=== PATIENT | female | born 1955 | race Caucasian/White ===

== ENCOUNTER 2020-06-27 21:02 | Inpatient (IN) | payer OTHER ==
[2020-06-27] MEDS ORDERED: SODIUM CHLORIDE 0.9% 1,000 ML IV STA (22:11)
[2020-06-27 22:28] LABS: Basophils % (A) 0 %; Eosinophils % (A) 1 %; Lymphocytes # (A) 1.1 k/uL (1.0-4.8); Lymphocytes % (A) 24 %; MCH 28.9 pg (25.0-35.0); MCHC 33.4 g/dL (31.0-37.0); MCV 86.7 fL (80.0-100.0); Mean Platelet Volume 7.6; Monocytes # (A) 0.3 k/uL (0-1.0); Monocytes % (A) 6 %; Neutrophils # (A) 3.1 k/uL (1.3-7.7); Neutrophils % (A) 66 %; Platelet Count 194 k/uL (150-450); RBC 4.84 m/uL (3.80-5.40); RDW 12.6 % (11.5-15.5); WBC 4.7 k/uL (3.8-10.6)
[2020-06-27 22:36] LABS: Partial Thromboplastin Time 25.1 sec (22.0-30.0); Prothrombin Time 10.3 sec (9.0-12.0)
[2020-06-27 22:41] LABS: ALT 25 U/L (4-34); AST 39 U/L (14-36); African American GFR (CKD) >90 (>60 ml/min/1.73 sqM); Albumin 4.1 g/dL (3.5-5.0); Alkaline Phosphatase 59 U/L (38-126); Anion Gap 11 mmol/L; Blood Urea Nitrogen 19 mg/dL (7-17); Calcium 8.9 mg/dL (8.4-10.2); Carbon Dioxide 24 mmol/L (22-30); Chloride 103 mmol/L (98-107); Glucose 119 mg/dL (74-99); Magnesium 2.1 mg/dL (1.6-2.3); Non-African American GFR(CKD) >90 (>60 ml/min/1.73 sqM); Potassium 3.6 mmol/L (3.5-5.1); Sodium 138 mmol/L (137-145); Total Bilirubin 0.6 mg/dL (0.2-1.3); Total Protein 6.6 g/dL (6.3-8.2)
--- NOTE | 2020-06-27 22:50 | XR ---
EXAMINATION TYPE: XR chest 2V DATE OF EXAM: 06/27/2020 COMPARISON: NONE HISTORY: Dysrhythmia TECHNIQUE: 2 views FINDINGS: Heart is normal. Lungs are clear. Costophrenic angles are clear. There are chest leads. Mai phragm is normal. Bony thorax is intact. IMPRESSION: No active cardiopulmonary disease. Normal heart.
[2020-06-27 23:28] LABS: Appearance,Urine Clear (Clear); Bacteria,Urine Rare /hpf; Bilirubin,Urine Negative (Negative); Blood,Urine Negative (Negative); Color,Urine Yellow; Glucose,Urine (UA) Negative (Negative); Ketones,Urine 2+ (Negative); Leukocyte Esterase,Urine Large (Negative); Mucus,Urine Rare /hpf; Nitrite,Urine Negative (Negative); Protein,Urine Trace (Negative); RBC,Urine 1 /hpf (0-5); Specific Gravity,Urine 1.016 (1.001-1.035); Squamous Epithelial Cell,Urine 1 /hpf (0-4); Urobilinogen,Urine <2.0 mg/dL (<2.0); WBC,Urine 12 /hpf (0-5)
[2020-06-27 23:59] LABS: T4, Free (Free Thyroxine) 1.04 ng/dL (0.78-2.19)
--- NOTE | 2020-06-28 00:30 | ED ---
General Adult HPI - General Chief complaint: Arrhythmia/Palpitations Stated complaint: Syncopy,Palpitations Time Seen by Provider: 06/27/20 21:43 Source: patient Mode of arrival: ambulatory Limitations: no limitations - History of Present Illness Initial comments: 64-year-old female patient presents to the emergency department today for evaluation of palpitations, dizziness, feeling unwell. Patient states that for the last couple of days she's been having these intermittent episodes or feeling her heart is racing. States she does get dizzy with the episodes. Denies any chest pain or tightness. States that she has been somewhat nauseated has had no appetite. Denies any fever or chills. Denies shortness of breath or cough. Patient denies any recent rash, chest pain, abdominal pain, diarrhea, constipation, back pain, numbness, tingling, dizziness, weakness, hematuria, dysuria, urinary urgency, urinary frequency, headache, visual changes, or any other complaints. - Related Data Allergies Allergy/AdvReac Type Severity Reaction Status Date / Time Penicillins Allergy Rash/Hives Verified 06/27/20 21:06 Review of Systems ROS Statement: Those systems with pertinent positive or pertinent negative responses have been documented in the HPI. ROS Other: All systems not noted in ROS Statement are negative. Past Medical History Past Medical History: No Reported History History of Any Multi-Drug Resistant Organisms: None Reported Past Surgical History: Section, Cholecystectomy Past Psychological History: No Psychological Hx Reported Smoking Status: Never smoker Past Alcohol Use History: None Reported Past Drug Use History: None Reported General Exam Limitations: no limitations General appearance: alert, in no apparent distress, other (This is a well-developed, well-nourished adult female patient in no acute distress. Vital signs upon presentation are temperature 98.1F, pulse 88, respirations 16, blood pressure 181/79, pulse ox 97% on room air.) Eye exam: Present: normal appearance, PERRL, EOMI. Absent: scleral icterus, conjunctival injection, periorbital swelling ENT exam: Present: normal exam, normal oropharynx, mucous membranes moist Respiratory exam: Present: normal lung sounds bilaterally. Absent: respiratory distress, wheezes, rales, rhonchi, stridor Cardiovascular Exam: Present: regular rate, normal rhythm, normal heart sounds. Absent: systolic murmur, diastolic murmur, rubs, gallop, clicks GI/Abdominal exam: Present: soft, normal bowel sounds. Absent: distended, tenderness, guarding, rebound, rigid Neurological exam: Present: alert, oriented X3, CN II-XII intact Psychiatric exam: Present: normal affect, normal mood Skin exam: Present: warm, dry, intact, normal color. 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 No evidence of ST elevation or depression. Medical Decision Making - Medical Decision Making 64-year-old female patient presents to the emergency department today for evaluation of palpitations, dizziness, not feeling well. Physical examination was unremarkable. Labs reviewed and were unremarkable. EKG showed normal sinus rhythm with no ectopy. Chest x-ray is negative. She did have a bit of a urinary tract infection will treat with Rocephin. She'll be admitted to the [facility] for serial troponins. Cardiology in the morning. Patient is agreeable with this plan. Case discussed with my attending Dr. Strickland. - Lab Data Result diagrams: 06/27/20 22:19 06/27/20 22:19 Lab Results 06/27/20 06/27/20 06/27/20 Range/Units 22:19 22:19 22:19 WBC 4.7 (3.8-10.6) k/uL RBC 4.84 (3.80-5.40) m/uL Hgb 14.0 (11.4-16.0) gm/dL Hct 42.0 (34.0-46.0) % MCV 86.7 (80.0-100.0) fL MCH 28.9 (25.0-35.0) pg MCHC 33.4 (31.0-37.0) g/dL RDW 12.6 (11.5-15.5) % Plt Count 194 (150-450) k/uL MPV 7.6 Neutrophils % 66 % Lymphocytes % 24 % Monocytes % 6 % Eosinophils % 1 % Basophils % 0 % Neutrophils # 3.1 (1.3-7.7) k/uL Lymphocytes # 1.1 (1.0-4.8) k/uL Monocytes # 0.3 (0-1.0) k/uL Eosinophils # 0.0 (0-0.7) k/uL Basophils # 0.0 (0-0.2) k/uL PT 10.3 (9.0-12.0) sec INR 1.0 (<1.2) APTT 25.1 (22.0-30.0) sec Sodium 138 (137-145) mmol/L Potassium 3.6 (3.5-5.1) mmol/L Chloride 103 (98-107) mmol/L Carbon Dioxide 24 (22-30) mmol/L Anion Gap 11 mmol/L BUN 19 H (7-17) mg/dL Creatinine 0.56 (0.52-1.04) mg/dL Est GFR (CKD-EPI)AfAm >90 (>60 ml/min/1.73 sqM) Est GFR (CKD-EPI)NonAf >90 (>60 ml/min/1.73 sqM) Glucose 119 H (74-99) mg/dL Calcium 8.9 (8.4-10.2) mg/dL Magnesium 2.1 (1.6-2.3) mg/dL Total Bilirubin 0.6 (0.2-1.3) mg/dL AST 39 H (14-36) U/L ALT 25 (4-34) U/L Alkaline Phosphatase 59 (38-126) U/L Troponin I (0.000-0.034) ng/mL Total Protein 6.6 (6.3-8.2) g/dL Albumin 4.1 (3.5-5.0) g/dL TSH 10.600 H (0.465-4.680) mIU/L Free T4 1.04 (0.78-2.19) ng/dL Urine Color Urine Appearance (Clear) Urine pH (5.0-8.0) Ur Specific Boyd (1.001-1.035) Urine Protein (Negative) Urine Glucose (UA) (Negative) Urine Ketones (Negative) Urine Blood (Negative) Urine Nitrite (Negative) Urine Bilirubin (Negative) Urine Urobilinogen (<2.0) mg/dL Ur Leukocyte Esterase (Negative) Urine RBC (0-5) /hpf Urine WBC (0-5) /hpf Ur Squamous Epith Cells (0-4) /hpf Urine Bacteria (None) /hpf Urine Mucus (None) /hpf 06/27/20 06/27/20 Range/Units 22:19 23:15 WBC (3.8-10.6) k/uL RBC (3.80-5.40) m/uL Hgb (11.4-16.0) gm/dL Hct (34.0-46.0) % MCV (80.0-100.0) fL MCH (25.0-35.0) pg MCHC (31.0-37.0) g/dL RDW (11.5-15.5) % Plt Count (150-450) k/uL MPV Neutrophils % % Lymphocytes % % Monocytes % % Eosinophils % % Basophils % % Neutrophils # (1.3-7.7) k/uL Lymphocytes # (1.0-4.8) k/uL Monocytes # (0-1.0) k/uL Eosinophils # (0-0.7) k/uL Basophils # (0-0.2) k/uL PT (9.0-12.0) sec INR (<1.2) APTT (22.0-30.0) sec Sodium (137-145) mmol/L Potassium (3.5-5.1) mmol/L Chloride (98-107) mmol/L Carbon Dioxide (22-30) mmol/L Anion Gap mmol/L BUN (7-17) mg/dL Creatinine (0.52-1.04) mg/dL Est GFR (CKD-EPI)AfAm (>60 ml/min/1.73 sqM) Est GFR (CKD-EPI)NonAf (>60 ml/min/1.73 sqM) Glucose (74-99) mg/dL Calcium (8.4-10.2) mg/dL Magnesium (1.6-2.3) mg/dL Total Bilirubin (0.2-1.3) mg/dL AST (14-36) U/L ALT (4-34) U/L Alkaline Phosphatase (38-126) U/L Troponin I <0.012 (0.000-0.034) ng/mL Total Protein (6.3-8.2) g/dL Albumin (3.5-5.0) g/dL TSH (0.465-4.680) mIU/L Free T4 (0.78-2.19) ng/dL Urine Color Yellow Urine Appearance Clear (Clear) Urine pH 6.0 (5.0-8.0) Ur Specific Boyd 1.016 (1.001-1.035) Urine Protein Trace H (Negative) Urine Glucose (UA) Negative (Negative) Urine Ketones 2+ H (Negative) Urine Blood Negative (Negative) Urine Nitrite Negative (Negative) Urine Bilirubin Negative (Negative) Urine Urobilinogen <2.0 (<2.0) mg/dL Ur Leukocyte Esterase Large H (Negative) Urine RBC 1 (0-5) /hpf Urine WBC 12 H (0-5) /hpf Ur Squamous Epith Cells 1 (0-4) /hpf Urine Bacteria Rare H (None) /hpf Urine Mucus Rare H (None) /hpf - Radiology Data Radiology results: report reviewed, image reviewed Two-view x-ray of the chest is obtained. Report was reviewed in its entirety. Impression by Dr. Weiss shows no active cardiopulmonary disease. Normal heart. Disposition Clinical Impression: Palpitations, Nausea, UTI (urinary tract infection) Disposition: ADMITTED IP TO THIS [facility] Condition: Serious Referrals: Joseph Chan DO [Primary Care Provider] - 1-2 days Decision to Admit Reason: Admit from EC Decision Date: 06/28/20 Decision Time: 00:30
[2020-06-28] MEDS ORDERED: NALOXONE 0.4 MG/ML 1 ML VIAL IV PRN (00:53)
[2020-06-28] MEDS ORDERED: ONDANSETRON 4 MG/2 ML VIAL IVP PRN (02:08)
--- NOTE | 2020-06-28 12:17 | P.HPIM ---
History of Present Illness This is a pleasant 64 years old female with past medical history of sciatic nerve pain. Also history of left breast cancer in 2001. Status post ligation and partial mastectomy. She is a patient of Dr. Chan. She presents to the emergency room yesterday because of 3 episodes of palpitation and presyncope. First episode happened while she was in shower and lasted for 5 seconds, her dizziness felt like presyncope but she did not pass out, she did not fall, this episode happened twice more and each time also last for about 5 seconds. She denies chest pain or dyspnea. No fever. No change in urine or bowel habits. She has some headache but no weakness or numbness. The patient denies smoking, alcohol or illicit drugs Vitals are stable, blood pressure on the high side 169/85. Labs are unremarkable including CBC, BMP and liver enzymes. TSH is elevated 10.6, free T4 is normal range at 1.0 EKG showing normal sinus rhythm at [address]-T changes and QTC 454. Chest x-ray: No acute process. In the emergency room patient was started on ceftriaxone Past Medical History Past Medical History: No Reported History, Cancer Additional Past Medical History / Comment(s): 2001 left breast CA /w radiation and partial mastectomy History of Any Multi-Drug Resistant Organisms: None Reported Past Surgical History: Section, Cholecystectomy Past Anesthesia/Blood Transfusion Reactions: No Reported Reaction Past Psychological History: No Psychological Hx Reported Smoking Status: Never smoker Past Alcohol Use History: None Reported Past Drug Use History: None Reported - Past Family History Father History Unknown: Yes Family Medical History: Blood Disorder, Hypertension, Myocardial Infarction ([place]) Additional Family Medical History / Comment(s): [place] when father was 70 Mother History Unknown: Yes Family Medical History: Hypertension Medications and Allergies Home Medications Medication Instructions Recorded Confirmed Type No Known Home Medications 06/28/20 06/28/20 History Allergies Allergy/AdvReac Type Severity Reaction Status Date / Time Penicillins Allergy Rash/Hives Verified 06/28/20 08:31 Physical Exam Vitals: Vital Signs Temp Pulse Pulse Pulse Resp BP BP 06/28/20 09:25 98.9 F 80 17 169/85 06/28/20 08:00 70 19 06/28/20 02:00 98.3 F 70 19 165/75 06/28/20 01:21 70 18 147/75 06/27/20 21:28 80 06/27/20 21:03 98.1 F 88 16 181/79 Pulse Ox 06/28/20 09:25 96 06/28/20 08:00 06/28/20 02:00 97 06/28/20 01:21 96 06/27/20 21:28 06/27/20 21:03 97 Intake and Output 06/27/20 06/28/20 06/28/20 22:59 06:59 14:59 Other: Voiding Method Toilet Toilet # Voids 1 1 Weight 70.307 kg 70.307 kg Results CBC & Chem 7: 06/27/20 22:19 06/27/20 22:19 Labs: Abnormal Lab Results - Last 24 Hours (Table) 06/27/20 06/27/20 06/28/20 Range/Units 22:19 23:15 01:20 BUN 19 H (7-17) mg/dL Glucose 119 H (74-99) mg/dL AST 39 H (14-36) U/L TSH 10.600 H (0.465-4.680) mIU/L Urine Protein Trace H (Negative) Urine Ketones 2+ H (Negative) Ur Leukocyte Esterase Large H (Negative) Urine WBC 12 H (0-5) /hpf Urine Bacteria Rare H (None) /hpf Urine Mucus Rare H (None) /hpf Coronavirus (PCR) Detected A (Not Detectd) Microbiology - Last 24 Hours (Table) 06/27/20 23:15 Urine Culture - Preliminary Urine,Voided Thrombosis Risk Factor Assmnt - Choose All That Apply Any of the Below Risk Factors Present?: No Each Risk Factor Represents 2 Points: Age 61-74 years Other congenital or acquired thrombophilia - If yes, enter type in comment: No Thrombosis Risk Factor Assessment Total Risk Factor Score: 2 Thrombosis Risk Factor Assessment Level: Low Risk Assessment and Plan Assessment: Episodic palpitation with presyncope. Rule out cardiac arrhythmia Covid 19 infection Possible urinary tract infection possible subclinical hypothyroidism Chronic low back pain with sciatica Plan: This is a pleasant 64 years old female who presents with palpitations and presyncope. Cardiology consult. Check echocardiogram. Telemetry. Consult infectious disease team for UTI and Covid. Follow-up urine culture. Patient currently on ceftriaxone. Reorder urinalysis and thyroid function test Labs and medication were reviewed.. Continue same treatment. Continue with symptomatic treatment. Resume home medication. Monitor lytes and vitals. DVT and GI prophylaxis. Further recommendationsas per clinical course of the patient DVT prophylaxis: Subcutaneous heparin GI Prophylaxis: Pepcid
--- NOTE | 2020-06-28 15:29 | P.CRDCN ---
History of Present Illness Consult date: 06/28/20 History of present illness: CHIEF COMPLAINT: Palpitations HISTORY OF PRESENT ILLNESS: This is a 64-year-old female with a past medical history significant for breast cancer. 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 We have been asked to see the patient in consultation for palpitations. Patient currently presented to the emergency room due to palpitations and feeling as though she is going to pass out. Patient was found to be positive for Covid 19 in the emergency room. Case discussed with patients nurse who states patient has not had any further complaints of palpitations or feeling like she is going to pass out. No chest pain or shortness of breath. Telemetry tracings reviewed with no evidence of arrhythmias. DIAGNOSTICS: EKG reveals sinus mechanism Chest xray no active cardio pulmonary disease Laboratory data: WBC 4.7. Hemoglobin 14.0. Platelet Count 194. Sodium 138. Potassium 3.6. BUN 19. Creatinine 0.56. Magnesium 2.1. Troponin negative 3. TSH 10.6. Free T4 1.04. Current home cardiac medications include none REVIEW OF SYSTEMS: Thorough review of systems not completed secondary to limited evaluation/examination and due to Covid19 PHYSICAL EXAM: Thorough physical exam not completed secondary to limited evaluation/examination and due to Covid19 ASSESSMENT: Covid 19 Palpitations Possible urinary tract infection Abnormal TSH PLAN: Preliminary echocardiogram completed revealed ejection fraction 55-60% Continue telemetry monitoring to assess for any arrhythmias Patient is stable from a cardiac perspective. We will sign off. Please reconsult if needed. Patient may follow up outpatient in the office and have an event monitor placed if she continues to experience palpitations Nurse practitioner note has been reviewed by physician. Signing provider agrees with the documented findings, assessment, and plan of care. Past Medical History Past Medical History: No Reported History, Cancer Additional Past Medical History / Comment(s): 2001 left breast CA /w radiation and partial mastectomy History of Any Multi-Drug Resistant Organisms: None Reported Past Surgical History: Section, Cholecystectomy Past Anesthesia/Blood Transfusion Reactions: No Reported Reaction Past Psychological History: No Psychological Hx Reported Smoking Status: Never smoker Past Alcohol Use History: None Reported Past Drug Use History: None Reported - Past Family History Father History Unknown: Yes Family Medical History: Blood Disorder, Hypertension, Myocardial Infarction ([place]) Additional Family Medical History / Comment(s): [place] when father was 70 Mother History Unknown: Yes Family Medical History: Hypertension Medications and Allergies Home Medications Medication Instructions Recorded Confirmed Type No Known Home Medications 06/28/20 06/28/20 History Allergies Allergy/AdvReac Type Severity Reaction Status Date / Time Penicillins Allergy Rash/Hives Verified 06/28/20 08:31 Physical Exam Vitals: Vital Signs Temp Pulse Pulse Pulse Resp BP BP 06/28/20 14:00 70 80 17 06/28/20 09:25 98.9 F 80 17 169/85 06/28/20 08:00 70 19 06/28/20 02:00 98.3 F 70 19 165/75 06/28/20 01:21 70 18 147/75 06/27/20 21:28 80 06/27/20 21:03 98.1 F 88 16 181/79 Pulse Ox 06/28/20 14:00 06/28/20 09:25 96 06/28/20 08:00 06/28/20 02:00 97 06/28/20 01:21 96 06/27/20 21:28 06/27/20 21:03 97 Intake and Output 06/28/20 06/28/20 06/28/20 06:59 14:59 22:59 Other: Voiding Method Toilet Toilet # Voids 1 2 Weight 70.307 kg Results 06/27/20 22:19 06/27/20 22:19 Cardiac Enzymes 06/27/20 06/27/20 06/28/20 Range/Units 22:19 22:19 01:45 AST 39 H (14-36) U/L Troponin I <0.012 <0.012 (0.000-0.034) ng/mL 06/28/20 Range/Units 04:47 AST (14-36) U/L Troponin I <0.012 (0.000-0.034) ng/mL Coagulation 06/27/20 Range/Units 22:19 PT 10.3 (9.0-12.0) sec APTT 25.1 (22.0-30.0) sec CBC 06/27/20 Range/Units 22:19 WBC 4.7 (3.8-10.6) k/uL RBC 4.84 (3.80-5.40) m/uL Hgb 14.0 (11.4-16.0) gm/dL Hct 42.0 (34.0-46.0) % Plt Count 194 (150-450) k/uL Comprehensive Metabolic Panel 06/27/20 Range/Units 22:19 Sodium 138 (137-145) mmol/L Potassium 3.6 (3.5-5.1) mmol/L Chloride 103 (98-107) mmol/L Carbon Dioxide 24 (22-30) mmol/L BUN 19 H (7-17) mg/dL Creatinine 0.56 (0.52-1.04) mg/dL Glucose 119 H (74-99) mg/dL Calcium 8.9 (8.4-10.2) mg/dL AST 39 H (14-36) U/L ALT 25 (4-34) U/L Alkaline Phosphatase 59 (38-126) U/L Total Protein 6.6 (6.3-8.2) g/dL Albumin 4.1 (3.5-5.0) g/dL Current Medications Generic Name Dose Route Start Last Admin Trade Name Freq PRN Reason Stop Dose Admin Acetaminophen 650 mg 06/28/20 12:06 Acetaminophen Tab 325 Mg Tab PO Q6HR PRN Fever and/ or Pain Famotidine 20 mg 06/28/20 21:00 Famotidine 20 Mg/2 Ml Vial IV Q12HR [facility] Heparin Sodium (Porcine) 5,000 unit 06/28/20 12:15 Heparin Sodium,Porcine 5,000 Unit/Ml 1 Ml Vial SQ Q12HR [facility] Ceftriaxone Sodium 1 gm/ 50 mls @ 100 mls/hr 06/29/20 00:00 Sodium Chloride IVPB Q24H [facility] Naloxone HCl 0.2 mg 06/28/20 00:53 Naloxone 0.4 Mg/Ml 1 Ml Vial IV Q2M PRN Opioid Reversal Ondansetron HCl 4 mg 06/28/20 02:08 Ondansetron 4 Mg/2 Ml Vial IVP Q6HR PRN Nausea And Vomiting Intake and Output 06/28/20 06/28/20 06/28/20 06:59 14:59 22:59 Other: Voiding Method Toilet Toilet # Voids 1 2 Weight 70.307 kg 06/27/20 22:19 06/27/20 22:19
[2020-06-28] MEDS: ACETAMINOPHEN TAB 325 MG TAB PO PRN ×2 (15:46→22:19)
[2020-06-28] MEDS: HEPARIN SODIUM,PORCINE 5,000 UNIT/ML 1 ML VIAL SQ SCH ×2 (15:46→20:05)
[2020-06-28 15:55] VITALS: BMI 29.2
[2020-06-28 17:11] LABS: Appearance,Urine Clear (Clear); Bilirubin,Urine Negative (Negative); Blood,Urine Trace (Negative); Color,Urine Yellow; Glucose,Urine (UA) Negative (Negative); Ketones,Urine 4+ (Negative); Leukocyte Esterase,Urine Moderate (Negative); Mucus,Urine Occasional /hpf; Nitrite,Urine Negative (Negative); Protein,Urine 1+ (Negative); RBC,Urine 8 /hpf (0-5); Specific Gravity,Urine 1.026 (1.001-1.035); Squamous Epithelial Cell,Urine 2 /hpf (0-4); WBC,Urine 11 /hpf (0-5)
--- NOTE | 2020-06-28 17:12 | ECHOF ---
Referral Reason:LV function, palpitations MEASUREMENTS -------- HEIGHT: 154.9 cm WEIGHT: 70.3 kg BP: 165/75 RVIDd: 2.8 cm (< 3.3) IVSd: 1.5 cm (0.6 - 1.1) LVIDd: 3.9 cm (3.9 - 5.3) LVPWd: 1.3 cm (0.6 - 1.1) IVSs: 1.8 cm LVIDs: 2.3 cm LVPWs: 1.8 cm LAESV Index (A-L): 20.17 ml/m Ao Diam: 2.7 cm (2.0 - 3.7) AV Cusp: 1.8 cm (1.5 - 2.6) MV EXCURSION: 11.892 mm (> 18.000) MV EF SLOPE: 80 mm/s (70 - 150) EPSS: 0.4 cm MV E Sundeep: 0.68 m/s MV DecT: 280 ms MV A Sundeep: 1.00 m/s MV E/A Ratio: 0.69 FINDINGS -------- Sinus rhythm. This was a technically adequate study. The left ventricular size is normal. There is moderate concentric left ventricular hypertrophy. O verall left ventricular systolic function is normal with, an EF between 55 - 60 %. The diastolic fi lling pattern is normal for the age of the patient 9.02. The right ventricle is normal in size. Normal LA size by volume 22+/-6 ml/m2. The right atrial size is normal. Mobile interatrial septum. Trace amount of aortic regurgitation. There is no evidence of aortic stenosis. Mild mitral regurgitation is present. Mild tricuspid regurgitation present. There is no evidence of pulmonary hypertension. The right v entricular systolic pressure, as measured by Doppler, is {RVSP}. There is no pulmonic regurgitation present. The aortic root size is normal. Normal inferior vena cava with normal inspiratory collapse consistent with estimated right atrial pre ssure of 5 mmHg. There is no pericardial effusion. CONCLUSIONS -------- 1. The left ventricular size is normal. 2. There is moderate concentric left ventricular hypertrophy. 3. Overall left ventricular systolic function is normal with, an EF between 55 - 60 %. 4. The diastolic filling pattern is normal for the age of the patient 9.02 5. Mobile interatrial septum. 6. Trace amount of aortic regurgitation. 7. Mild mitral regurgitation is present. 8. Mild tricuspid regurgitation present. [employer]OUS [employer] SUPERVISOR: Gali Morgan RDCS
[2020-06-28] MEDS: FAMOTIDINE 20 MG/2 ML VIAL IV SCH (20:05)
--- NOTE | 2020-06-28 23:26 | CONS ---
CONSULTATION DATE OF SERVICE: 06/28/2020 REASON FOR FOLLOWUP: 1. Positive COVID test. 2. UTI. HISTORY OF PRESENT ILLNESS: The patient is a 64-year-old female presenting to the ER for evaluation of not feeling well and palpitation. Patient mentioned that she has not been feeling well for the last few days, has been more of a generalized not feeling well. The patient denies having any neck or URI symptoms. Denies having any chest pain or shortness of breath or cough. Some nausea but no vomiting. No abdominal pain and no diarrhea. The patient noticed some palpitations and thought she was going to pass out. That brought her to the hospital. On arrival in the ER, the patient was afebrile. No tachycardia has been noted. The patient was saturating 97% to 98% on room air. The patient did have a normal white count with no lymphopenia. D-dimer was not checked. Kidney function was normal, AST mildly elevated at 39. No other inflammatory markers were done. Urine has been mildly positive. Bright PCR came back . Chest x-ray was reported negative. The patient has been admitted to hospital for COVID and UTI. Infectious Disease was consulted for further management of antibiotic therapy. REVIEW OF SYSTEMS: Positive points have been mentioned in the HPI. Rest of the systems are negative. PAST MEDICAL HISTORY: No major illnesses. PAST SURGICAL HISTORY: , cholecystectomy. SOCIAL HISTORY: Denies smoking, drinking or drug use. FAMILY HISTORY: No pertinent findings noticed. ALLERGIES: PENICILLIN with a rash. No history of anaphylaxis. MEDICATIONS: The patient is currently on Tylenol, Rocephin, Pepcid, heparin subcutaneously, Narcan, Zofran. PHYSICAL EXAMINATION: Her blood pressure is 118/75 with a pulse of 69, temperature 98.7. She is 97% on room air. General description is a middle-aged female up in the bed in no distress. No tachypnea or accessory muscle of respiration use. HEENT: Examination shows no pallor or scleral icterus. Oral mucous membrane is dry. NECK: Trachea is central. No thyromegaly. LUNGS: Unlabored breathing. Clear to auscultation anteriorly. No wheeze or crackle. HEART: S1, S2. Regular rate and rhythm. ABDOMEN: Soft. No tenderness. No guarding or rigidity. EXTREMITIES: No edema of the feet. SKIN EXAMINATION: No rash or mass palpable. Neurologically the patient is awake, alert, oriented x3. Mood and affect normal. LABS: Hemoglobin is 14, white count of 4.7. BUN of 19, creatinine 0.56. Electrolytes have been normal. AST mildly elevated. No other inflammatory markers done. Urine is positive. Bright PCR was positive. Chest x-ray negative. DIAGNOSTIC IMPRESSION AND PLAN: 1. Patient presented to hospital predominately with just not feeling well and palpitations in this patient who did have a positive COVID test. However, the patient does not have significant respiratory symptoms and no fever. No lymphopenia, though she did have a mildly elevated AST. But no other inflammatory markers were done. Question of false positive or just mild COVID-19 infection. 2. Patient with positive urinalysis with no urinary symptoms; likely asymptomatic bacteriuria. PLAN: 1. We will check her inflammatory markers along with D-dimer. 2. Will add vitamin C, zinc sulfate. 3. Patient with no hypoxemia, no need for steroid therapy. 4. No need for antibiotic, as the patient more likely has asymptomatic bacteriuria than symptomatic UTI. 5. We will follow her clinical condition and investigations to further adjust medication if needed. Thank you for this consultation. Will follow this patient along with you. MMODL / IJN: [id number] /
[2020-06-29] MEDS: ACETAMINOPHEN TAB 325 MG TAB PO PRN ×3 (05:50→19:33)
[2020-06-29] MEDS: HEPARIN SODIUM,PORCINE 5,000 UNIT/ML 1 ML VIAL SQ SCH ×2 (07:46→19:33)
[2020-06-29] MEDS: FAMOTIDINE 20 MG/2 ML VIAL IV SCH (07:47)
[2020-06-29] MEDS: ZINC SULFATE 220 MG CAP PO SCH (07:47)
[2020-06-29] MEDS: ASCORBIC ACID 500 MG TAB PO SCH (07:47)
[2020-06-29] MEDS ORDERED: DILTIAZEM DRIP BOLUS FROM BAG 1 MG SOLN IV STA (09:05)
[2020-06-29] MEDS ORDERED: DILTIAZEM 125 MG in SODIUM CHLORIDE 0.9% 100 ML IV SCH (09:30)
[2020-06-29 10:23] LABS: African American GFR (CKD) 112.4 (60.0-200.0); Albumin 3.6 g/dL (3.80-4.90); Albumin/Globulin Ratio 1.5 (1.60-3.17); Anion Gap 11.3 mmol/L (4.00-12.00); C Reactive Protein 0.7 mg/dL (0.0-0.8); Calcium 8.8 mg/dL (8.7-10.3); Carbon Dioxide 24.7 mmol/L (21.6-31.8); Globulin 2.4 g/dL (1.6-3.3); Potassium 3.4 mmol/L (3.5-5.5); Total Bilirubin 0.3 mg/dL (0.3-1.2)
[2020-06-29] MEDS ORDERED: POTASSIUM CHLORIDE ER 20 MEQ TAB.ER PO STA (10:48)
--- NOTE | 2020-06-29 12:06 | P.PN ---
Subjective This is a pleasant 64 years old female with past medical history of sciatic nerve pain. Also history of left breast cancer in 2001. Status post ligation and partial mastectomy. She is a patient of Dr. Chan. She presents to the emergency room yesterday because of 3 episodes of palpitation and presyncope. First episode happened while she was in shower and lasted for 5 seconds, her dizziness felt like presyncope but she did not pass out, she did not fall, this episode happened twice more and each time also last for about 5 seconds. She denies chest pain or dyspnea. No fever. No change in urine or bowel habits. She has some headache but no weakness or numbness. The patient denies smoking, alcohol or illicit drugs Vitals are stable, blood pressure on the high side 169/85. Labs are unremarkable including CBC, BMP and liver enzymes. TSH is elevated 10.6, free T4 is normal range at 1.0 EKG showing normal sinus rhythm at [address]-T changes and QTC 454. Chest x-ray: No acute process. In the emergency room patient was started on ceftriaxone 06/29/2020 Yesterday cardiology see the patient for discharge however this morning she developed another episode of palpitation where she was found to have A. fib and RVR, floor hand team were reconsulted started the patient on Cardizem drip and transferred to telemetry floor/select floor currently patient is with no chest pain or dyspnea. No fever. No urinary symptoms and most likely she has asymptomatic bacteriuria no UTI. Antibiotics were discontinued. Patient is positive for cough with drop test however she is asymptomatic, no pulmonary symptoms, no diarrhea. Only A. fib signs and symptoms D-dimer is negative at 0.2. BMP is unremarkable. Serial troponins are negative. Liver enzymes not elevated. Repeat TSH improved to 6.3, free T4 is 1.0, I think we should start the patient on levothyroxine now especially in view of her new onset A. fib. Continue zinc, vitamin C and Cardizem drip per floor hand. We will defer the decision to anticoagulate to cartilage team Review of systems CONSTITUTIONAL: No fever, no malaise, no fatigue. HEENT: No recent visual problems or hearing problems. Denied any sore throat. CARDIOVASCULAR: No orthopnea, PND, no palpitations, no syncope. PULMONARY: No shortness of breath, no cough, no hemoptysis. GASTROINTESTINAL: No diarrhea, no nausea, no vomiting, no abdominal pain. Normoactive bowel sounds. NEUROLOGICAL: No headaches, no weakness, no numbness. Active Medications Generic Name Dose Route Start Last Admin Trade Name Freq PRN Reason Stop Dose Admin Acetaminophen 650 mg 06/28/20 12:06 06/29/20 05:50 Acetaminophen Tab 325 Mg Tab PO 650 mg Q6HR PRN Administration Fever and/ or Pain Ascorbic Acid 1,000 mg 06/29/20 09:00 06/29/20 07:47 Ascorbic Acid 500 Mg Tab PO 1,000 mg DAILY KRYSTAL Administration Famotidine 20 mg 06/28/20 21:00 06/29/20 07:47 Famotidine 20 Mg/2 Ml Vial IV 20 mg Q12HR KRYSTAL Administration Heparin Sodium (Porcine) 5,000 unit 06/28/20 12:15 06/29/20 07:46 Heparin Sodium,Porcine 5,000 Unit/Ml 1 Ml Vial SQ 5,000 unit Q12HR KRYSTAL Administration Diltiazem HCl 125 mg/ Sodium 125 mls @ 10 mls/hr 06/29/20 09:30 Chloride IV .[id number] KRYSTAL 10 MG/HR Naloxone HCl 0.2 mg 06/28/20 00:53 Naloxone 0.4 Mg/Ml 1 Ml Vial IV Q2M PRN Opioid Reversal Ondansetron HCl 4 mg 06/28/20 02:08 Ondansetron 4 Mg/2 Ml Vial IVP Q6HR PRN Nausea And Vomiting Zinc Sulfate 220 mg 06/29/20 09:00 06/29/20 07:47 Zinc Sulfate 220 Mg Cap PO 220 mg DAILY KRYSTAL Administration Objective - Vital Signs Vital signs: Vital Signs Temp 98.4 F 06/29/20 05:48 Pulse 88 06/29/20 11:12 Resp 16 06/29/20 11:12 BP 132/81 06/29/20 11:12 Pulse Ox 96 06/29/20 11:12 Intake & Output 06/28/20 06/29/20 06/29/20 18:59 06:59 18:59 Intake Total 200 Balance 200 Weight 70.307 kg Intake: Oral 200 Other: Voiding Method Toilet Toilet Toilet # Voids 2 1 - Exam GENERAL: The patient is alert and oriented x3, not in any acute distress. Well developed, well nourished. HEENT: Pupils are round and equally reacting to light. EOMI. No scleral icterus. No conjunctival pallor. Normocephalic, atraumatic. No pharyngeal erythema. No thyromegaly. CARDIOVASCULAR: S1 and S2 present. No murmurs, rubs, or gallops. PULMONARY: Chest is clear to auscultation, no wheezing or crackles. ABDOMEN: Soft, nontender, nondistended, normoactive bowel sounds. No palpable organomegaly. MUSCULOSKELETAL: No joint swelling or deformity. EXTREMITIES: No cyanosis, clubbing, or pedal edema. NEUROLOGICAL: Gross neurological examination did not reveal any focal deficits. SKIN: No rashes. no petechiae. - Labs CBC & Chem 7: 06/27/20 22:19 06/29/20 05:32 Labs: Abnormal Lab Results - Last 24 Hours (Table) 06/28/20 06/29/20 Range/Units 16:00 05:32 Potassium 3.4 L (3.5-5.5) mmol/L BUN/Creatinine Ratio 30.00 H (12.00-20.00) Ratio Total Protein 6.0 L (6.2-8.2) g/dL Albumin 3.60 L (3.80-4.90) g/dL Albumin/Globulin Ratio 1.50 L (1.60-3.17) g/dL TSH 6.320 H (0.350-5.500) uIU/mL Urine Protein 1+ H (Negative) Urine Ketones 4+ H (Negative) Urine Blood Trace H (Negative) Ur Leukocyte Esterase Moderate H (Negative) Urine RBC 8 H (0-5) /hpf Urine WBC 11 H (0-5) /hpf Urine Mucus Occasional H (None) /hpf Microbiology - Last 24 Hours (Table) 06/27/20 23:15 Urine Culture - Preliminary Urine,Voided Assessment and Plan Assessment: Episodic palpitation with presyncope. Secondary to A. fib and RVR Covid 19 infection, no hypoxia Asymptomatic bacteriuria rather than UTI subclinical hypothyroidism Chronic low back pain with sciatica Plan: This is a pleasant 64 years old female who presents with palpitations and presyncope secondary to A. fib. Cardiology consult. Continue with Cardizem per floor hand. Start anticoagulation per floor hand. Telemetry. Appreciated infectious disease team consult Recheck thyroid Function test in 1-2 months Labs and medication were reviewed.. Continue same treatment. Continue with symptomatic treatment. Resume home medication. Monitor lytes and vitals. DVT and GI prophylaxis. Further recommendationsas per clinical course of the patient DVT prophylaxis: Subcutaneous heparin GI Prophylaxis: Pepcid
[2020-06-29] MEDS: METOPROLOL TARTRATE 25 MG TAB PO SCH ×2 (13:02→19:34)
--- NOTE | 2020-06-29 13:02 | P.PN ---
Subjective This is a pleasant 64-year-old female past medical history significant for breast cancer. 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 Echocardiogram obtained reveals preserved LV systolic function with ejection fraction 55-60%, mild MR and mild TR. Blood pressure 132/81 heart rate 88 afebrile maintaining oxygen saturation on room air. Laboratory data reviewed, d-dimer 0.2, sodium 142, potassium 3.4, creatinine 0.6, TSH 6.32 and free T4 1.0. She was transferred to Selective Care unit secondary to an episode of tachycardia noted on telemetry. EKG's reviewed, she appears to be in sinus mechanism with short bursts of atrial tachycardia. Could be atrial fibrillation, difficulty to discern clear p-waves but is irregular. GENERAL: Well-appearing, well-nourished and in no acute distress. NECK: Supple without JVD or thyromegaly. LUNGS: Breath sounds clear to auscultation bilaterally. Respiration equal and unlabored. No wheezes, rales or rhonchi. HEART: Regular rate and rhythm without murmurs, rubs or gallops. S1 and S2 heard. EXTREMITIES: Normal range of motion, no edema. No clubbing or cyanosis. Peripheral pulses intact. ASSESSMENT Atrial tachycardia Covid 19 History of breast cancer PLAN CHADS-VASC score is 1. No anti-coagulation at this time. Initiate lopressor 25 mg BID. Ongoing telemetry monitoring. Nurse Practitioner note has been reviewed, I agree with a documented findings and plan of care. Patient was seen and examined. Objective - Vital Signs Vital signs: Vital Signs Temp 98.4 F 06/29/20 05:48 Pulse 88 06/29/20 11:12 Resp 16 06/29/20 11:12 BP 132/81 06/29/20 11:12 Pulse Ox 96 06/29/20 11:12 Intake & Output 06/28/20 06/29/20 06/29/20 18:59 06:59 18:59 Intake Total 200 Balance 200 Weight 70.307 kg Intake: Oral 200 Other: Voiding Method Toilet Toilet Toilet # Voids 2 1 - Labs CBC & Chem 7: 06/27/20 22:19 06/29/20 05:32 Labs: Abnormal Lab Results - Last 24 Hours (Table) 06/28/20 06/29/20 Range/Units 16:00 05:32 Potassium 3.4 L (3.5-5.5) mmol/L BUN/Creatinine Ratio 30.00 H (12.00-20.00) Ratio Total Protein 6.0 L (6.2-8.2) g/dL Albumin 3.60 L (3.80-4.90) g/dL Albumin/Globulin Ratio 1.50 L (1.60-3.17) g/dL TSH 6.320 H (0.350-5.500) uIU/mL Urine Protein 1+ H (Negative) Urine Ketones 4+ H (Negative) Urine Blood Trace H (Negative) Ur Leukocyte Esterase Moderate H (Negative) Urine RBC 8 H (0-5) /hpf Urine WBC 11 H (0-5) /hpf Urine Mucus Occasional H (None) /hpf Microbiology - Last 24 Hours (Table) 06/27/20 23:15 Urine Culture - Final Urine,Voided
--- NOTE | 2020-06-29 13:04 | PN ---
PROGRESS NOTE DATE OF SERVICE: 06/29/2020 REASON FOR FOLLOWUP: Positive Covid test. INTERVAL HISTORY: The patient is currently afebrile. The patient went into not atrial fibrillation with RVR and the patient discharge has been put on hold. Transferred to the cardiac unit. The patient denies having any chest pain. No shortness of breath or cough. No abdominal pain. No diarrhea. No urinary symptoms. PHYSICAL EXAMINATION: Blood pressure 123/76, pulse of 92, temperature 98. She is 95% on room air. General description: The patient is a middle-aged female lying in bed in no distress. Respiratory system: Unlabored breathing. Clear to auscultation. No wheeze or crackles. Heart S1, S2. Regular rate and rhythm. Abdomen soft, no tenderness. LABS: D-dimer is normal. Creatinine is normal. Liver enzymes are normal. Procalcitonin is normal. Repeat PCR is currently pending. DIAGNOSTIC IMPRESSION AND PLAN: Patient admitted to the hospital predominantly with palpitations, now with evidence of atrial fibrillation with RVR, more likely etiology of her symptoms. She did have a positive Covid test but no respiratory symptoms. Chest x-ray was negative and no significant inflammatory markers. We will continue with Vanco, multivitamin and anticoagulation because of her atrial fibrillation. No need for steroids or any specific antibiotic therapy. MMODL / IJN: [id number] / MTDD
[2020-06-29] MEDS: FAMOTIDINE 20 MG TAB PO SCH (19:34)
[2020-06-30] MEDS: ACETAMINOPHEN TAB 325 MG TAB PO PRN (03:27)
[2020-06-30 08:59] VITALS: RESP 16; TEMP 98.4
[2020-06-30] MEDS: ZINC SULFATE 220 MG CAP PO SCH (09:02)
[2020-06-30] MEDS: METOPROLOL TARTRATE 25 MG TAB PO SCH (09:02)
[2020-06-30] MEDS: HEPARIN SODIUM,PORCINE 5,000 UNIT/ML 1 ML VIAL SQ SCH (09:02)
[2020-06-30] MEDS: FAMOTIDINE 20 MG TAB PO SCH (09:02)
--- NOTE | 2020-06-30 10:56 | P.PN ---
Subjective This is a pleasant 64-year-old female past medical history significant for breast cancer. 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 Echocardiogram obtained reveals preserved LV systolic function with ejection fraction 55-60%, mild MR and mild TR. Blood pressure 132/81 heart rate 88 afebrile maintaining oxygen saturation on room air. Laboratory data reviewed, d-dimer 0.2, sodium 142, potassium 3.4, creatinine 0.6, TSH 6.32 and free T4 1.0. She was transferred to Selective Care unit secondary to an episode of tachycardia noted on telemetry. EKG's reviewed, she appears to be in sinus mechanism with short bursts of atrial tachycardia. Could be atrial fibrillation, difficulty to discern clear p-waves but is irregular. 06/30/2020 Patient is seen sitting up in bed in no acute distress she has no symptoms of chest pain, shortness of breath, dizziness or palpitations. Telemetry tracings indicate persistent sinus mechanism. Blood pressure 135/71 heart rate 86 afebrile maintaining oxygen saturation on room air. GENERAL: Well-appearing, well-nourished and in no acute distress. NECK: Supple without JVD or thyromegaly. LUNGS: Breath sounds clear to auscultation bilaterally. Respiration equal and unlabored. No wheezes, rales or rhonchi. HEART: Regular rate and rhythm without murmurs, rubs or gallops. S1 and S2 heard. EXTREMITIES: Normal range of motion, no edema. No clubbing or cyanosis. Peripheral pulses intact. ASSESSMENT Atrial tachycardia Covid 19 History of breast cancer PLAN Stable on current medical regimen. Follow up in the office in 2-3 weeks. Nurse Practitioner note has been reviewed, I agree with a documented findings and plan of care. Patient was seen and examined. Objective - Vital Signs Vital signs: Vital Signs Temp 98.4 F 06/30/20 08:58 Pulse 86 06/30/20 08:58 Resp 16 06/30/20 08:58 BP 135/71 06/30/20 08:58 Pulse Ox 96 06/30/20 08:58 Intake & Output 06/29/20 06/30/20 06/30/20 18:59 06:59 18:59 Intake Total 1400 250 Balance 1400 250 Weight 69 kg Intake: Oral 1400 250 Other: Voiding Method Toilet Toilet Toilet # Voids 1 3 1 - Labs CBC & Chem 7: 06/27/20 22:19 06/29/20 05:32 Labs: Abnormal Lab Results - Last 24 Hours (Table) 06/28/20 Range/Units 12:00 Coronavirus (PCR) Detected A (Not Detected) Microbiology - Last 24 Hours (Table) 06/27/20 23:15 Urine Culture - Final Urine,Voided
[2020-06-30 12:16] VITALS: BP 153/79; PULSE 80
[2020-06-30] MEDS: ASCORBIC ACID 500 MG TAB PO SCH (12:16)
--- NOTE | 2020-06-30 21:45 | P.DS ---
Providers Date of admission: 06/28/20 01:27 Attending physician: Lilia Gambino Consults: 06/28/20 12:13 Consult Physician Urgent Consulting Provider: Prabhakar Hartley Consult Reason/Comments: covid and possible UTI Do you want consulting provider notified?: Yes 06/29/20 08:52 Consult Physician Urgent Consulting Provider: [facility] Consult Reason/Comments: new afib, palpitation Do you want consulting provider notified?: Yes Primary care physician: Joseph Chan Hospital Course: Diagnoses: Episodic palpitation with presyncope. Secondary to A. fib and RVR Covid 19 infection, no hypoxia Asymptomatic bacteriuria rather than UTI subclinical hypothyroidism Chronic low back pain with sciatica hospital course: This is a pleasant 64 years old female with past medical history of sciatic nerve pain. Also history of left breast cancer in 2001. Status post ligation and partial mastectomy. She is a patient of Dr. Chan. She presents to the emergency room because of 3 episodes of palpitation and presyncope. Found to have A. fib with RVR, manager freelance evaluated the patient. Patient was monitored closely TSH and d-dimer were negative and with the reference range. Patient was started on metoprolol and heart rate was controlled, no need for anticoagulation per manager freelance for low chads score. Patient also with asymptomatic bacteriuria and is symptomatic covid infection, no diarrhea, no GI and no urinary tract symptoms. Respiratory symptoms On the day of discharge patient is back to her baseline with no chest pain or dyspnea. No other symptoms. No fever. Patient agrees to go home today Patient was cleared for discharge by manager freelance Problems and management plan were discussed with the patient and he verbalized understanding and acceptance Patient was found stable and can be discharged home however he needs follow-up as an outpatient. Patient was instructed to follow up with PCP Dr. Chan within one week and patient agrees. Also patient was instructed to follow up with her manager freelance Dr. Clark in 2 weeks. Patient agrees Physical exam Gen: patient is a AAOx3, no distress CVS: S1-S2, RRR, no murmur Lungs: B/L CTA, no wheezing Abdomen: soft, no distention, no tenderness, positive bowel sounds Extremity: no leg edema or induration Time spent more than 35 minutes Patient Condition at Discharge: Serious Plan - Discharge Summary Discharge Rx Participant: Yes New Discharge Prescriptions: New Metoprolol Tartrate [Lopressor] 25 mg PO BID #60 tab Zinc Sulfate [Orazinc] 220 mg PO DAILY #30 cap Acetaminophen Tab [Tylenol] 650 mg PO Q6HR PRN tab PRN Reason: Fever And/ Or Pain Ascorbic Acid [Vitamin C] 1,000 mg PO DAILY #60 tab Discharge Medication List Acetaminophen Tab [Tylenol] 650 mg PO Q6HR PRN tab 06/30/20 [Rx] Ascorbic Acid [Vitamin C] 1,000 mg PO DAILY #60 tab 06/30/20 [Rx] Metoprolol Tartrate [Lopressor] 25 mg PO BID #60 tab 06/30/20 [Rx] Zinc Sulfate [Orazinc] 220 mg PO DAILY #30 cap 06/30/20 [Rx] Follow up Appointment(s)/Referral(s): Radha Clark MD [STAFF PHYSICIAN] - 1 Week Joseph Chan DO [Primary Care Provider] - 1-2 days Patient Instructions/Handouts: Coronavirus Disease 2019 (COVID-19), Heart Palpitations (DC) Discharge Disposition: HOME SELF-CARE
--- NOTE | 2020-07-01 21:31 | P.PN ---
Progress Note - Text Progress Note Date: 06/30/20 REASON FOR FOLLOWUP: Positive Covid test. INTERVAL HISTORY: The patient is afebrile. The patient denies having any chest pain, no shortness of breath or cough. No abdominal pain. No diarrhea. No urinary symptoms. PHYSICAL EXAMINATION: Blood pressure 120/70, pulse of 82, temperature 98. She is 95% on room air. General description: The patient is a middle-aged female lying in bed in no distress. Respiratory system: Unlabored breathing. Clear to auscultation. No wheeze or crackles. Heart S1, S2. Regular rate and rhythm. Abdomen soft, no tenderness. LABS: reviewed. DIAGNOSTIC IMPRESSION AND PLAN: Patient admitted to the hospital predominantly with palpitations, now with evidence of atrial fibrillation with RVR, more likely etiology of her symptoms. She did have a positive Covid test but no respiratory symptoms. Chest x-ray was negative and no significant inflammatory markers. We will continue with Zinc, vitamin C and anticoagulation because of her atrial fibrillation. No need for steroids or any specific antibiotic therapy for covid 19.
== END 2020-06-30 14:07 | disposition home or self-care (01) | DRG 308 ==
LOC: EC 21:02 → 6NMEDSUR 06-28 01:27 → 4SSUR 06-28 02:02 → 3SCARD 06-29 10:01 → OBSVTOIN 06-30 07:14 → UNDODISOB 06-30 14:07
PROVIDERS: ADMIT Hospitalist; ATTEND Hospitalist
DX: I48.19 Other persistent atrial fibrillation (principal); U07.1 COVID-19; I47.1 Supraventricular tachycardia; R82.71 Bacteriuria; G89.29 Other chronic pain; M54.40 Lumbago with sciatica, unspecified side; E03.9 Hypothyroidism, unspecified; R55 Syncope and collapse; Z90.49 Acquired absence of other specified parts of digestive tract; Z90.12 Acquired absence of left breast and nipple; Z85.3 Personal history of malignant neoplasm of breast; Z92.3 Personal history of irradiation; Z88.0 Allergy status to penicillin; Z82.49 Family history of ischemic heart disease and other diseases of the circulatory system; Z83.2 Family history of diseases of the blood and blood-forming organs and certain disorders involving the immune mechanism
CPT/HCPCS: 36415; 71046; 80053; 81001; 83615; 83735; 84145; 84439; 84443; 84484; 85025; 85379; 85610; 85730; 86140; 87086; 87635; 93005; 93306; 94760; 96361; 96365; 99285

== ENCOUNTER → 2020-08-19 | Outpatient (CLI) | payer OTHER ==
--- NOTE | 2020-08-20 09:53 | MM ---
Reason for exam: additional evaluation requested from prior study. Last mammogram was performed 2 years and 5 months ago. History: Patient is postmenopausal and has history of breast cancer at age 45. Benign US left guided VAD of the left breast, July 14, 2010. Malignant excisional biopsy of the left breast, June 10, 2001. Benign cyst aspiration of the left breast, May 20, 2001. Stereotactic core biopsy of the left breast, May 20, 2001. Radiation therapy of the left breast, 2001. Core biopsy of the left breast. Lumpectomy of the left breast. 2 radiation therapies of the left breast. Took tamoxifen for 5 years beginning at age 45. Physical Findings: Nurse did not find any significant physical abnormalities on exam. MG Diagnostic Mammo w CAD JULIAN Bilateral CC and MLO view(s) were taken. Prior study comparison: March 16, 2018, bilateral MG diagnostic mammo w CAD JULIAN. February 07, 2016, bilateral MG diagnostic mammo w CAD JULIAN. There are scattered fibroglandular densities. Previous mammotome biopsy in the left breast. Post surgical change left breast. Stable central asymmetric density posterior left MLO view. No significant new findings when compared with previous films. These results were verbally communicated with the patient and result sheet given to the patient on 08/19/20. ASSESSMENT: Benign, BI-RAD 2 RECOMMENDATION: Follow-up diagnostic mammogram of both breasts in 1 year.
== END | disposition home or self-care (01) ==
LOC: RADMAMWWP 07:03
PROVIDERS: ATTEND Family Medicine
DX: N64.89 Other specified disorders of breast (principal); Z85.3 Personal history of malignant neoplasm of breast; Z78.0 Asymptomatic menopausal state
CPT/HCPCS: 77066

== ENCOUNTER → 2022-02-11 | Outpatient (CLI) | payer OTHER ==
--- NOTE | 2022-02-12 19:39 | MM ---
Reason for Exam: Screening (asymptomatic). Last mammogram was performed 1 year(s) and 6 month(s) ago. Patient History: Menarche at age 13. First Full-Term at age 20. Postmenopausal. Breast cancer, age 45. Tamoxifen for 5 years from age 45 until age 50. Lumpectomy on the Left side. Core Biopsy on the Left side. 07/14/2010, Benign Core Biopsy on the left side. 06/10/2001, Malignant Excisional Biopsy on the left side. 05/20/2001, Benign Cyst Aspiration on the left side. 05/20/2001, Stereotactic Core Biopsy on the Left side. Radiation Therapy, left. Radiation Therapy, left. 2001, Radiation Therapy on the left side. Prior Study Comparison: 02/07/2016 Bilateral Diagnostic Mammogram, [facility]. 03/16/2018 Bilateral Diagnostic Mammogram, [facility]. 08/19/2020 Bilateral Diagnostic Mammogram, [facility]. Tissue Density: There are scattered fibroglandular densities. Findings: Analyzed By CAD. Postsurgical and posttreatment changes left breast. There is no suspicious group of microcalcifications or new suspicious mass in either breast. Overall Assessment: Benign, BI-RAD 2 Management: Screening Mammogram of both breasts in 1 year. 1. Patient should continue monthly self breast exams. 2. A clinical breast exam by your physician is recommended on an annual basis. 3. This exam should not preclude additional follow-up of suspicious palpable abnormalities. Electronically signed and approved by: Yahir Lo M.D. Radiologist
== END | disposition home or self-care (01) ==
LOC: RADMAMWWP 08:59
PROVIDERS: ATTEND Family Medicine
DX: Z12.31 Encounter for screening mammogram for malignant neoplasm of breast (principal); Z78.0 Asymptomatic menopausal state; Z85.3 Personal history of malignant neoplasm of breast; Z98.890 Other specified postprocedural states
CPT/HCPCS: 77067

== ENCOUNTER → 2023-04-07 | Outpatient (CLI) | payer OTHER ==
--- NOTE | 2023-04-07 08:07 | US ---
EXAMINATION TYPE: US carotid duplex BILAT DATE OF EXAM: 04/07/2023 COMPARISON: NONE CLINICAL INDICATION: Female, 67 years old with history of R53.83 FATIGUE; Headaches; fatigue TECHNIQUE: Carotid duplex ultrasound examination. Indirect Doppler criteria was utilized. FINDINGS: EXAM MEASUREMENTS: RIGHT: Peak Systolic Velocity (PSV) cm/sec ----- Right CCA: 98.2 ----- Right ICA: 88.1 ----- Right ECA: 61.9 ICA/CCA ratio: 0.9 RIGHT: End Diastole cm/sec ----- Right CCA: 29.9 ----- Right ICA: 32.8 ----- Right ECA: 21.2 LEFT: Peak Systolic Velocity (PSV) cm/sec ----- Left CCA: 82.7 ----- Left ICA: 77.9 ----- Left ECA: 87.5 ICA/CCA ratio: 0.9 LEFT: End Diastole cm/sec ----- Left CCA: 24.6 ----- Left ICA: 29.4 ----- Left ECA: 18.1 VERTEBRALS (direction of flow): Right Vertebral: Antegrade Left Vertebral: Antegrade Rhythm: Normal BRUSH CLEANER NOTES: No elevated velocities IMPRESSION: 1. No significant flow-limiting stenosis bilateral carotid bifurcations. Criteria for Assigning % of Stenosis / Diameter reduction (Estimation based on the indirect measurements of the internal carotid artery velocities (ICA PSV). 1. Normal (no stenosis)=ICA PSV < 125 cm/s: ratio < 2.0: ICA EDV<40 cm/s. 2. Less than 50% stenosis=ICA PSV < 125 cm/s: ratio < 2.0: ICA EDV<40 cm/s. 3. 50 to 69% stenosis=ICA PSV of 125 to 230 cm/s: ration 2.0 ? 4.0: ICA EDV 40-100 cm/s. 4. Greater than 70% stenosis to near occlusion= ICA PSV > 230 cm/s: ratio > 4.0: ICA EDV > 100 cm/s. 5. Near occlusion= ICA PSV velocities may be low or undetectable: variable ratio and ICA EDV. 6. Total occlusion=unable to detect flow.
--- NOTE | 2023-04-08 12:34 | MM ---
Reason for Exam: Screening (asymptomatic). Last mammogram was performed 1 year(s) and 2 month(s) ago. Patient History: Menarche at age 13. First Full-Term at age 20. Postmenopausal. Breast cancer, left, age 45. Tamoxifen for 5 years from age 45 until age 50. Lumpectomy on the Left side. Core Biopsy on the Left side. 07/14/2010, Benign Core Biopsy on the left side. 06/10/2001, Malignant Excisional Biopsy on the left side. 05/20/2001, Benign Cyst Aspiration on the left side. 05/20/2001, Stereotactic Core Biopsy on the Left side. Radiation Therapy, left. Radiation Therapy, left. 2001, Radiation Therapy on the left side. Prior Study Comparison: 03/16/2018 Bilateral Diagnostic Mammogram, [facility]. 08/19/2020 Bilateral Diagnostic Mammogram, [facility]. 02/11/2022 Bilateral MG screening mammo w CAD, [facility]. Tissue Density: There are scattered fibroglandular densities. Findings: Analyzed By CAD. There is no suspicious group of microcalcifications or new suspicious mass in either breast. Overall Assessment: Benign, BI-RAD 2 Management: Screening Mammogram of both breasts in 1 year. . Patient should continue monthly self-breast exams. A clinical breast exam by your physician is recommended on an annual basis. This exam should not preclude additional follow-up of suspicious palpable abnormalities. Note on Tesha scores and lifetime risk: 1. A Tesha score greater than 3% is considered moderate risk. If this is the case, consider specialist referral to assess eligibility for a risk reducing agent. 2. If overall lifetime risk for the development of breast cancer is 20% or higher, the patient may qualify for future screening with alternating mammogram and breast MRI. Electronically signed and approved by: Chris Espitia M.D. Radiologis
== END | disposition home or self-care (01) ==
LOC: RADUSWWP 07:34
PROVIDERS: ATTEND Family Medicine
DX: Z12.31 Encounter for screening mammogram for malignant neoplasm of breast (principal); R53.83 Other fatigue; Z78.0 Asymptomatic menopausal state; Z85.3 Personal history of malignant neoplasm of breast
CPT/HCPCS: 77063; 77067; 93880

== ENCOUNTER 2023-04-29 22:57 | Emergency (ER) | payer OTHER ==
[2023-04-29 23:17] VITALS: TEMP 98.1
[2023-04-29] MEDS ORDERED: SODIUM CHLORIDE 0.9% 1,000 ML IV STA (23:29)
[2023-04-29] MEDS ORDERED: MECLIZINE 12.5 MG TAB PO STA (23:29)
[2023-04-30 00:54] LABS: Basophils % (A) 0 %; Eosinophils # (A) 0.1 k/uL (0-0.7); Eosinophils % (A) 1 %; HCT 41.4 % (34.0-46.0); HGB 13.8 gm/dL (11.4-16.0); Lymphocytes # (A) 1.1 k/uL (1.0-4.8); Lymphocytes % (A) 11 %; MCH 30.1 pg (25.0-35.0); MCHC 33.4 g/dL (31.0-37.0); MCV 90.3 fL (80.0-100.0); Mean Platelet Volume 8.2; Monocytes # (A) 0.4 k/uL (0-1.0); Monocytes % (A) 4 %; Neutrophils # (A) 8.4 k/uL (1.3-7.7); Neutrophils % (A) 82 %; Platelet Count 269 k/uL (150-450); RBC 4.58 m/uL (3.80-5.40); RDW 12.4 % (11.5-15.5); WBC 10.2 k/uL (3.8-10.6)
[2023-04-30 01:03] LABS: ALT 20 U/L (4-34); African American GFR (CKD) >90 (>60 ml/min/1.73 sqM); Albumin 4.1 g/dL (3.5-5.0); Anion Gap 9 mmol/L; Blood Urea Nitrogen 16 mg/dL (7-17); Calcium 9.1 mg/dL (8.4-10.2); Carbon Dioxide 25 mmol/L (22-30); Chloride 105 mmol/L (98-107); Glucose 120 mg/dL (74-99); Non-African American GFR(CKD) >90 (>60 ml/min/1.73 sqM); Sodium 139 mmol/L (137-145); Total Bilirubin 0.4 mg/dL (0.2-1.3); Total Protein 6.8 g/dL (6.3-8.2)
[2023-04-30 01:04] LABS: AST 28 U/L (14-36); Potassium 4.1 mmol/L (3.5-5.1)
[2023-04-30 01:05] LABS: Alkaline Phosphatase 75 U/L (38-126); Prothrombin Time 10.7 sec (10.0-12.5)
[2023-04-30 02:19] VITALS: BP 147/89; PULSE 85; RESP 18
--- NOTE | 2023-04-30 02:52 | ED ---
Recheck HPI - General Chief Complaint: Recheck/Abnormal Lab/Rx Stated Complaint: Hypertension, Dizziness Time Seen by Provider: 04/29/23 23:13 Source: patient, EMS Mode of arrival: EMS - History of Present Illness Initial Comments: 67-year-old female presenting with chief complaint of dizziness. Patient reports that this evening she started to feel ill. She took some over-the- counter cough medicine. Later on in the evening she started to feel lightheaded. She is unsure if she took her blood pressure medication this evening. She noted an elevated blood pressure. No chest pain, difficulty breathing, palpitations, numbness, tingling, weakness, headache, vision or hearing changes, abdominal pain, nausea, vomiting. - Related Data Previous Rx's Medication Instructions Recorded Acetaminophen Tab [Tylenol] 650 mg PO Q6HR PRN tab 06/30/20 Ascorbic Acid [Vitamin C] 1,000 mg PO DAILY #60 tab 06/30/20 Metoprolol Tartrate [Lopressor] 25 mg PO BID #60 tab 06/30/20 Zinc Sulfate [Orazinc] 220 mg PO DAILY #30 cap 06/30/20 Meclizine [Antivert] 25 mg PO DAILY PRN #10 tab 04/30/23 Allergies Allergy/AdvReac Type Severity Reaction Status Date / Time Penicillins Allergy Rash/Hives Verified 06/28/20 08:31 Review of Systems ROS Statement: Those systems with pertinent positive or pertinent negative responses have been documented in the HPI. ROS Other: All systems not noted in ROS Statement are negative. Past Medical History Past Medical History: No Reported History, Cancer Additional Past Medical History / Comment(s): 2001 left breast CA /w radiation and partial mastectomy History of Any Multi-Drug Resistant Organisms: None Reported Past Surgical History: Section, Cholecystectomy Past Anesthesia/Blood Transfusion Reactions: No Reported Reaction Past Psychological History: No Psychological Hx Reported Smoking Status: Never smoker Past Alcohol Use History: None Reported Past Drug Use History: None Reported - Past Family History Father History Unknown: Yes Family Medical History: Blood Disorder, Hypertension, Myocardial Infarction ([place]) Additional Family Medical History / Comment(s): [place] when father was 70 Mother History Unknown: Yes Family Medical History: Hypertension General Exam Limitations: no limitations General appearance: alert, in no apparent distress Head exam: Present: atraumatic, normocephalic Eye exam: Present: normal appearance, PERRL, EOMI. Absent: scleral icterus, conjunctival injection, periorbital swelling Neck exam: Present: normal inspection Respiratory exam: Present: normal lung sounds bilaterally. Absent: respiratory distress, wheezes, rales, rhonchi, stridor Cardiovascular Exam: Present: regular rate, normal rhythm, normal heart sounds. Absent: systolic murmur, diastolic murmur, rubs, gallop, clicks Extremities exam: Present: normal inspection, full ROM Neurological exam: Present: alert, oriented X3 Expanded Patient oriented to: Present: person, place, time Speech: Present: fluid speech Cerebellar function: Finger to Nose: Normal, Heel to [place]: Normal Motor strength exam: RUE: 5, LUE: 5, RLE: 5, LLE: 5 Eye Response: (4) open spontaneously Motor Response: (6) obeys commands Verbal Response: (5) oriented Michele Total: 15 Psychiatric exam: Present: normal affect, normal mood Skin exam: Present: warm, dry Course Vital Signs 04/29/23 04/30/23 23:01 01:50 Temperature 98.1 F Pulse Rate 87 85 Respiratory 19 18 Rate Blood Pressure 193/95 147/89 O2 Sat by Pulse 97 96 Oximetry Medical Decision Making - Medical Decision Making Was pt. sent in by a medical professional or institution ([facility] [place], COMPOSITE BOAT BUILDER, urgent care, hospital, or skilled nursing...) When possible be specific @ -No Did you speak to anyone other than the patient for history (EMS, parent, family, police, friend...)? What history was obtained from this source @ -No Did you review nursing and triage notes (agree or disagree)? Why? @ -I reviewed and agree with nursing and triage notes Were old charts reviewed (outside hosp., previous admission, EMS record, old EKG, old radiological studies, urgent care reports/EKG's, skilled nursing records)? Report findings @ -No old charts were reviewed Differential Diagnosis (chest pain, altered mental status, abdominal pain women, abdominal pain men, vaginal bleeding, weakness, fever, dyspnea, syncope, headache, dizziness, GI bleed, back pain, seizure, CVA, palpatations, mental health, musculoskeletal)? @ -MDM Differential Dizziness: Benign paroxysmal positional Vertigo, Menieres disease, otitis media, acoustic neuroma, vertebrobasilar insufficiency, cerebellar stroke, encephalitis, hypovolemic, arrhythmia, coronary artery syndrome, anemia this is not meant to be an all-inclusive list EKG interpreted by me (3pts min.). @ -Sinus rhythm ventricular rate 77. IN interval 131. QRS 90. QT 386. QTc 418. X-rays interpreted by me (1pt min.). @ -None done CT interpreted by me (1pt min.). @ -None done U/S interpreted by me (1pt. min.). @ -None done What testing was considered but not performed or refused? (CT, X-rays, U/S, labs)? Why? @ -None What meds were considered but not given or refused? Why? @ -None Did you discuss the management of the patient with other professionals (professionals i.e. , PA, COMPOSITE BOAT BUILDER, lab, RT, psych nurse, psychotherapist social worker, international operations manager, teacher, traffic officer, case work aide)? Give summary @ -No Was smoking cessation discussed for >3mins.? @ -No Was critical care preformed (if so, how long)? @ -No Were there social determinants of health that impacted care today? How? (Homelessness, low income, unemployed, alcoholism, drug addiction, transportation, low edu. Level, literacy, decrease access to med. care, [facility], rehab)? @ -No Was there de-escalation of care discussed even if they declined (Discuss DNR or withdrawal of care, Hospice)? DNR status @ -No What co-morbidities impacted this encounter? (DM, HTN, Smoking, COPD, CAD, Cancer, CVA, ARF, Chemo, Hep., AIDS, mental health diagnosis, sleep apnea, morbid obesity)? @ -Hypertension Was patient admitted / discharged? Hospital course, mention meds given and route, prescriptions, significant lab abnormalities, going to OR and other pertinent info. @ -67-year-old female presenting with chief complaint of lightheadedness. Patient is hypertensive this evening. She does report taking some [id number]-rlm-[id number] cold medicine this evening. History and physical exam are c onducted. GCS is 15 and no noted neurological deficits. Lab work shows no leukocytosis or anemia. Negative troponin. Glucose 120. Creatinine 0.48. Remainder of lab work unremarkable. Negative orthostatic vitals, which were reported to me through nurse's paper documentation. EKG shows sinus rhythm. Blood pressure has normalized without any intervention. She reported some mild improvement after meclizine. Symptoms may have been due to transient hypertension due to qhyt-kyq-grmbuuk cold medicine. Patient is educated on today's findings. I instructed her to not take any pyej-kgu-urhnftg cold medication unless it is specifically indicated for those with hypertension. Educated on alarms symptoms that should prompt reevaluation. Follow-up with PCP. Report back to ER with any new or worsening symptoms. Discussed return parameters and answered all questions. Patient conveyed verbal understanding and agreed to the plan. I discussed this case in detail with my attending Dr. Barclay Undiagnosed new problem with uncertain prognosis? @ -No Drug Therapy requiring intensive monitoring for toxicity (Heparin, Nitro, Insulin, Cardizem)? @ -No Were any procedures done? @ -No Diagnosis/symptom? @ -Dizziness Acute, or Chronic, or Acute on Chronic? @ -acute Uncomplicated (without systemic symptoms) or Complicated (systemic symptoms)? @ -Uncomplicated Side effects of treatment? @ -No Exacerbation, Progression, or Severe Exacerbation? @ -No Poses a threat to life or bodily function? How? (Chest pain, [place], [place], pneumonia, PE, COPD, DKA, ARF, appy, cholecystitis, CVA, Diverticulitis, Homicidal, Suicidal, threat to staff... and all critical care pts) @ -Low likelihood - Lab Data Result diagrams: 04/29/23 23:37 04/29/23 23:37 Lab Results 04/29/23 04/29/23 04/29/23 Range/Units 23:37 23:37 23:37 WBC 10.2 (3.8-10.6) k/uL RBC 4.58 (3.80-5.40) m/uL Hgb 13.8 (11.4-16.0) gm/dL Hct 41.4 (34.0-46.0) % MCV 90.3 (80.0-100.0) fL MCH 30.1 (25.0-35.0) pg MCHC 33.4 (31.0-37.0) g/dL RDW 12.4 (11.5-15.5) % Plt Count 269 (150-450) k/uL MPV 8.2 Neutrophils % 82 % Lymphocytes % 11 % Monocytes % 4 % Eosinophils % 1 % Basophils % 0 % Neutrophils # 8.4 H (1.3-7.7) k/uL Lymphocytes # 1.1 (1.0-4.8) k/uL Monocytes # 0.4 (0-1.0) k/uL Eosinophils # 0.1 (0-0.7) k/uL Basophils # 0.0 (0-0.2) k/uL PT 10.7 (10.0-12.5) sec INR 1.0 (<1.2) Sodium 139 (137-145) mmol/L Potassium 4.1 (3.5-5.1) mmol/L Chloride 105 (98-107) mmol/L Carbon Dioxide 25 (22-30) mmol/L Anion Gap 9 mmol/L BUN 16 (7-17) mg/dL Creatinine 0.48 L (0.52-1.04) mg/dL Est GFR (CKD-EPI)AfAm >90 (>60 ml/min/1.73 sqM) Est GFR (CKD-EPI)NonAf >90 (>60 ml/min/1.73 sqM) Glucose 120 H (74-99) mg/dL Plasma Lactic Acid Stoney (0.7-2.0) mmol/L Calcium 9.1 (8.4-10.2) mg/dL Total Bilirubin 0.4 (0.2-1.3) mg/dL AST 28 (14-36) U/L ALT 20 (4-34) U/L Alkaline Phosphatase 75 (38-126) U/L Troponin I (0.000-0.034) ng/mL Total Protein 6.8 (6.3-8.2) g/dL Albumin 4.1 (3.5-5.0) g/dL 04/29/23 04/29/23 Range/Units 23:37 23:37 WBC (3.8-10.6) k/uL RBC (3.80-5.40) m/uL Hgb (11.4-16.0) gm/dL Hct (34.0-46.0) % MCV (80.0-100.0) fL MCH (25.0-35.0) pg MCHC (31.0-37.0) g/dL RDW (11.5-15.5) % Plt Count (150-450) k/uL MPV Neutrophils % % Lymphocytes % % Monocytes % % Eosinophils % % Basophils % % Neutrophils # (1.3-7.7) k/uL Lymphocytes # (1.0-4.8) k/uL Monocytes # (0-1.0) k/uL Eosinophils # (0-0.7) k/uL Basophils # (0-0.2) k/uL PT (10.0-12.5) sec INR (<1.2) Sodium (137-145) mmol/L Potassium (3.5-5.1) mmol/L Chloride (98-107) mmol/L Carbon Dioxide (22-30) mmol/L Anion Gap mmol/L BUN (7-17) mg/dL Creatinine (0.52-1.04) mg/dL Est GFR (CKD-EPI)AfAm (>60 ml/min/1.73 sqM) Est GFR (CKD-EPI)NonAf (>60 ml/min/1.73 sqM) Glucose (74-99) mg/dL Plasma Lactic Acid Stoney 1.6 (0.7-2.0) mmol/L Calcium (8.4-10.2) mg/dL Total Bilirubin (0.2-1.3) mg/dL AST (14-36) U/L ALT (4-34) U/L Alkaline Phosphatase (38-126) U/L Troponin I <0.012 (0.000-0.034) ng/mL Total Protein (6.3-8.2) g/dL Albumin (3.5-5.0) g/dL Disposition Clinical Impression: Dizziness, Hypertension Disposition: HOME SELF-CARE Condition: Good Instructions (If sedation given, give patient instructions): Chronic Hypertension (ED), Dizziness (ED) Additional Instructions: Follow-up with PCP. Report back to ER with any new or worsening symptoms. Prescriptions: Meclizine [Antivert] 25 mg PO DAILY PRN #10 tab PRN Reason: Vertigo Is patient prescribed a controlled substance at d/c from ED?: No Referrals: Joseph Chan DO [Primary Care Provider] - 1-2 days Time of Disposition: 02:52
== END 2023-04-30 03:10 | disposition home or self-care (01) ==
LOC: EC 22:57
DX: I10 Essential (primary) hypertension (principal); R42 Dizziness and giddiness; Z88.0 Allergy status to penicillin
CPT/HCPCS: 36415; 80053; 83605; 84484; 85025; 85610; 93005; 96360; 96361; 99284

== ENCOUNTER 2023-05-16 17:35 | Emergency (ER) | payer OTHER ==
[2023-05-16 17:50] VITALS: BP 163/86; PULSE 108; RESP 18; TEMP 98.8
--- NOTE | 2023-05-16 18:32 | ED ---
General Adult HPI - General Chief complaint: Arrhythmia/Palpitations Stated complaint: high heart rate Time Seen by Provider: 05/16/23 18:31 Source: patient, RN notes reviewed Mode of arrival: ambulatory Limitations: no limitations - History of Present Illness Initial comments: Patient is 67-year-old female presented ER with chief complaint of tachycardia. Patient states she has not been feeling well and has been having a congestion and cough. Patient denies any known fevers. - Related Data Previous Rx's Medication Instructions Recorded Acetaminophen Tab [Tylenol] 650 mg PO Q6HR PRN tab 06/30/20 Ascorbic Acid [Vitamin C] 1,000 mg PO DAILY #60 tab 06/30/20 Metoprolol Tartrate [Lopressor] 25 mg PO BID #60 tab 06/30/20 Zinc Sulfate [Orazinc] 220 mg PO DAILY #30 cap 06/30/20 Meclizine [Antivert] 25 mg PO DAILY PRN #10 tab 04/30/23 Allergies Allergy/AdvReac Type Severity Reaction Status Date / Time Penicillins Allergy Rash/Hives Verified 05/16/23 17:47 Review of Systems ROS Statement: Those systems with pertinent positive or pertinent negative responses have been documented in the HPI. ROS Other: All systems not noted in ROS Statement are negative. Past Medical History Past Medical History: No Reported History, Cancer Additional Past Medical History / Comment(s): 2001 left breast CA /w radiation and partial mastectomy History of Any Multi-Drug Resistant Organisms: None Reported Past Surgical History: Section, Cholecystectomy Past Anesthesia/Blood Transfusion Reactions: No Reported Reaction Past Psychological History: No Psychological Hx Reported Smoking Status: Never smoker Past Alcohol Use History: None Reported Past Drug Use History: None Reported - Past Family History Father History Unknown: Yes Family Medical History: Blood Disorder, Hypertension, Myocardial Infarction ([place]) Additional Family Medical History / Comment(s): [place] when father was 70 Mother History Unknown: Yes Family Medical History: Hypertension General Exam - General Exam Comments Initial Comments: Visual Physical Exam Vital signs reviewed General: Well-appearing, nontoxic, no acute distress. Head: Normocephalic, atraumatic Eyes: PERRLA, EOMI ENT: Airway patent Chest: Nonlabored breathing Skin: No visual rash, normal skin tone Neuro: Alert and oriented 3 Musculoskeletal: No gross abnormalities Limitations: no limitations Course Vital Signs 01/14/24 17:41 Temperature 98.8 F Pulse Rate 108 H Respiratory 18 Rate Blood Pressure 163/86 O2 Sat by Pulse 96 Oximetry Medical Decision Making - Medical Decision Making I performed the quick note portion of the exam. Electronically signed by Flavio Moss PA-C - Lab Data Lab Results 05/16/23 Range/Units 19:54 Influenza Type A (PCR) Not Detected (Not Detectd) Influenza Type B (PCR) Not Detected (Not Detectd) RSV (PCR) Not Detected (Not Detectd) SARS-CoV-2 (PCR) Not Detected (Not Detectd) Disposition Clinical Impression: Left against medical advice Disposition: LEFT AGAINST MEDICAL ADVICE Condition: Undetermined Referrals: Joseph Chan DO [Primary Care Provider] - 1-2 days Time of Disposition: 22:26
--- NOTE | 2023-05-16 19:22 | XR ---
EXAMINATION TYPE: XR chest 2V DATE OF EXAM: 05/16/2023 COMPARISON: 06/27/2020 INDICATION: Cough, tachycardia TECHNIQUE: Frontal and lateral views of the chest are obtained. FINDINGS: The heart size is normal. The pulmonary vasculature is normal. The lungs are clear. Surgical clips are likely within the left breast. IMPRESSION: 1. No acute pulmonary process.
== END 2023-05-16 22:51 | disposition left against medical advice (07) ==
LOC: EC 17:35
DX: R00.0 Tachycardia, unspecified (principal); R00.2 Palpitations; Z20.822 Contact with and (suspected) exposure to COVID-19; Z53.29 Procedure and treatment not carried out because of patient's decision for other reasons; Z88.0 Allergy status to penicillin
CPT/HCPCS: 71046; 87636; 93005; 99284

== ENCOUNTER → 2024-01-14 | Outpatient (CLI) | payer OTHER ==
--- NOTE | 2024-01-14 14:08 | XR ---
EXAMINATION TYPE: XR shoulder complete RT DATE OF EXAM: 01/14/2024 CLINICAL HISTORY: pain TECHNIQUE: Three views of the right shoulder are obtained. COMPARISON: None FINDINGS: There is no acute fracture/dislocation evident. The acromioclavicular and glenohumeral anuel int spaces appear within normal limits. The visualized ribs are intact and unremarkable. IMPRESSION: 1. There is no acute fracture or dislocation. ICD 10 NO FRACTURE, INITIAL EVALUATION
--- NOTE | 2024-01-14 14:09 | XR ---
EXAMINATION TYPE: XR hand complete RT DATE OF EXAM: 01/14/2024 CLINICAL HISTORY: pain TECHNIQUE: Frontal, lateral and oblique images of the right hand are obtained. COMPARISON: None. FINDINGS: There is no acute fracture/dislocation evident. The joint spaces appear within normal limi ts. The overlying soft tissue appears unremarkable. IMPRESSION: There is no acute fracture or dislocation ICD 10 NO FRACTURE, INITIAL EVALUATION
--- NOTE | 2024-01-14 14:10 | XR ---
EXAMINATION TYPE: XR wrist complete RT DATE OF EXAM: 01/14/2024 CLINICAL HISTORY: pain TECHNIQUE: Frontal, lateral and oblique images of the right wrist are obtained. COMPARISON: None. FINDINGS: There is distal radial fracture noted at the level of the radial styloid. Intra-articular extension i s noted. Displacement at less than 1 mm. There is also evidence of a triquetral fracture with osseous fragment seen within the dorsal carpal space. Soft tissue swelling noted. IMPRESSION: Accurate as discussed above.
--- NOTE | 2024-01-14 14:11 | XR ---
EXAMINATION TYPE: XR humerus RT DATE OF EXAM: 01/14/2024 CLINICAL HISTORY: pain COMPARISON: NONE TECHNIQUE: Frontal and lateral images of the right humerus are obtained. FINDINGS: There is no acute fracture/dislocation evident. The joint spaces appear within normal limi ts. The overlying soft tissue appears unremarkable. IMPRESSION: There is no acute fracture or dislocation.ICD 10 NO FRACTURE, INITIAL EVALUATION
== END | disposition home or self-care (01) ==
LOC: RADXRMAIN 13:19
PROVIDERS: ATTEND Emergency Medicine
DX: S43.401A Unspecified sprain of right shoulder joint, initial encounter (principal); S60.221A Contusion of right hand, initial encounter; S52.591A Other fractures of lower end of right radius, initial encounter for closed fracture

== ENCOUNTER 2024-05-09 19:32 | Observation (INO) | payer OTHER ==
[2024-05-09 20:16] LABS: Basophils % (A) 1 %; Eosinophils # (A) 0.4 k/uL (0-0.7); Eosinophils % (A) 5 %; HGB 13.7 gm/dL (11.4-16.0); Lymphocytes # (A) 2.4 k/uL (1.0-4.8); Lymphocytes % (A) 32 %; MCH 29.5 pg (25.0-35.0); MCHC 32.7 g/dL (31.0-37.0); MCV 90.1 fL (80.0-100.0); Mean Platelet Volume 6.9; Monocytes # (A) 0.4 k/uL (0-1.0); Monocytes % (A) 5 %; Neutrophils # (A) 4.2 k/uL (1.3-7.7); Neutrophils % (A) 55 %; Platelet Count 269 k/uL (150-450); RBC 4.66 m/uL (3.80-5.40); RDW 11.9 % (11.5-15.5); WBC 7.6 k/uL (3.8-10.6)
--- NOTE | 2024-05-09 20:23 | ED ---
Chest Pain HPI - General Chief Complaint: Chest Pain Stated Complaint: Hypertension Time Seen by Provider: 05/09/24 19:39 Source: patient, RN notes reviewed Mode of arrival: ambulatory Limitations: no limitations - History of Present Illness Initial Comments: 68-year-old female presents emergency department chief complaint of chest pressure, hypertension. Patient states that she had a stressful day states that she has had some pressure just generalized not feeling well, tired feeling. Patient denies any prior cardiac stents patient denies history of hyperlipidemia or diabetes. Patient states that she has never had a heart cath. Patient denies any fever chills patient is on current antibiotics secondary to dental infection. Patient denies any leg pain leg swelling no history of DVT or PE. Has no current shortness of breath. - Related Data Previous Rx's Medication Instructions Recorded Acetaminophen Tab [Tylenol] 650 mg PO Q6HR PRN tab 06/30/20 Ascorbic Acid [Vitamin C] 1,000 mg PO DAILY #60 tab 06/30/20 Metoprolol Tartrate [Lopressor] 25 mg PO BID #60 tab 06/30/20 Zinc Sulfate [Orazinc] 220 mg PO DAILY #30 cap 06/30/20 Meclizine [Antivert] 25 mg PO DAILY PRN #10 tab 04/30/23 Allergies Allergy/AdvReac Type Severity Reaction Status Date / Time Penicillins Allergy Rash/Hives Verified 05/09/24 19:37 Review of Systems ROS Statement: Those systems with pertinent positive or pertinent negative responses have been documented in the HPI. ROS Other: All systems not noted in ROS Statement are negative. EKG Findings - EKG Comments: EKG Findings:: EKG performed at 19: 44 sinus rhythm rate of 82 OH 120 QRS 86 QT/QTc 370/408 - EKG Results: EKG: interpreted by [facility] Past Medical History Past Medical History: Cancer, Hypertension Additional Past Medical History / Comment(s): 2001 left breast CA /w radiation and partial mastectomy History of Any Multi-Drug Resistant Organisms: None Reported Past Surgical History: Section, Cholecystectomy Past Anesthesia/Blood Transfusion Reactions: No Reported Reaction Past Psychological History: No Psychological Hx Reported Smoking Status: Never smoker Past Alcohol Use History: None Reported Past Drug Use History: None Reported - Past Family History Father History Unknown: Yes Family Medical History: Blood Disorder, Hypertension, Myocardial Infarction ([place]) Additional Family Medical History / Comment(s): [place] when father was 70 Mother History Unknown: Yes Family Medical History: Hypertension General Exam Limitations: no limitations General appearance: alert, in no apparent distress Head exam: Present: atraumatic, normocephalic, normal inspection Eye exam: Present: normal appearance, PERRL, EOMI. Absent: scleral icterus, conjunctival injection, periorbital swelling ENT exam: Present: normal exam, normal oropharynx, mucous membranes moist Neck exam: Present: normal inspection, full ROM. Absent: tenderness, meningismus, lymphadenopathy Respiratory exam: Present: normal lung sounds bilaterally. Absent: respiratory distress, wheezes, rales, rhonchi, stridor Cardiovascular Exam: Present: regular rate, normal rhythm, normal heart sounds. Absent: systolic murmur, diastolic murmur, rubs, gallop, clicks GI/Abdominal exam: Present: soft, normal bowel sounds. Absent: distended, tenderness, guarding, rebound, rigid Extremities exam: Absent: pedal edema, calf tenderness Course Vital Signs 05/09/24 05/09/24 19:33 21:18 Temperature 97.6 F Pulse Rate 98 79 Respiratory 20 18 Rate Blood Pressure 198/79 158/94 O2 Sat by Pulse 96 Oximetry Chest Pain MDM - MDM Was pt. sent in by a medical professional or institution (, PA, SLOT FLOORPERSON, urgent care, hospital, or long-term...) When possible be specific @ -No Did you speak to anyone other than the patient for history (EMS, parent, family, police, friend...)? What history was obtained from this source @ -No Did you review nursing and triage notes (agree or disagree)? Why? @ -I reviewed and agree with nursing and triage notes Were old charts reviewed (outside hosp., previous admission, EMS record, old EKG, old radiological studies, urgent care reports/EKG's, long-term records)? Report findings @ -No old charts were reviewed Differential Diagnosis (chest pain, altered mental status, abdominal pain women, abdominal pain men, vaginal bleeding, weakness, fever, dyspnea, syncope, headache, dizziness, GI bleed, back pain, seizure, CVA, palpatations, mental health, musculoskeletal)? @ -Differential Chest Pain: Stable Angina, Unstable Angina, STEMI, NSTEMI Aortic Dissection, Pneumothorax, Musculoskeletal, Esophageal Spasm GERD, Cholecystitis, Pancreatitis, Zoster, this is not meant to be an all-inclusive list. EKG interpreted by me (3pts min.). @ -As above X-rays interpreted by me (1pt min.). @ -Chest x-ray shows no acute cardiopulmonary process CT interpreted by me (1pt min.). @ -None done U/S interpreted by me (1pt. min.). @ -None done What testing was considered but not performed or refused? (CT, X-rays, U/S, labs)? Why? @ -None What meds were considered but not given or refused? Why? @ -None Did you discuss the management of the patient with other professionals (professionals i.e. DrRachna, PA, SLOT FLOORPERSON, lab, RT, psych nurse, social worker assistant, waterproofing mixer, teacher, artillery officer, case planner)? Give summary @ -[EMH for admission Was smoking cessation discussed for >3mins.? @ -No Was critical care preformed (if so, how long)? @ -No Were there social determinants of health that impacted care today? How? (Homelessness, low income, unemployed, alcoholism, drug addiction, transportation, low edu. Level, literacy, decrease access to med. care, assisted, rehab)? @ -No Was there de-escalation of care discussed even if they declined (Discuss DNR or withdrawal of care, Hospice)? DNR status @ -No What co-morbidities impacted this encounter? (DM, HTN, Smoking, COPD, CAD, Cancer, CVA, ARF, Chemo, Hep., AIDS, mental health diagnosis, sleep apnea, morbid obesity)? @ -Hypertension Was patient admitted / discharged? Hospital course, mention meds given and route, prescriptions, significant lab abnormalities, going to OR and other pertinent info. @ -Admitted patient presented for ACS type symptoms. Patient does have multiple risk factors. Patient will be admitted for cardiac rule out. Initial troponin is negative patient will repeat labs, echocardiogram cardiology evaluation Undiagnosed new problem with uncertain prognosis? @ -No Drug Therapy requiring intensive monitoring for toxicity (Heparin, Nitro, Insulin, Cardizem)? @ -No Were any procedures done? @ -No Diagnosis/symptom? @ -Chest pain Acute, or Chronic, or Acute on Chronic? @ -Acute Uncomplicated (without systemic symptoms) or Complicated (systemic symptoms)? @ -Complicated Side effects of treatment? @ -No Exacerbation, Progression, or Severe Exacerbation? @ -No Poses a threat to life or bodily function? How? (Chest pain, [place], [place], pneumonia, PE, COPD, DKA, ARF, appy, cholecystitis, CVA, Diverticulitis, Homicidal, Suicidal, threat to staff... and all critical care pts) @ -[Yes possible ACS, risk of cardiac function Disposition Clinical Impression: Chest pain Disposition: ADMITTED IP TO THIS HOSP Condition: Fair Referrals: Joseph Chan DO [Primary Care Provider] - 1-2 days Time of Disposition: 22:05
[2024-05-09 20:25] LABS: ALT 16 U/L (4-34); AST 22 U/L (14-36); African American GFR (CKD) >90 (>60 ml/min/1.73 sqM); Albumin 4.3 g/dL (3.5-5.0); Alkaline Phosphatase 67 U/L (38-126); Anion Gap 7 mmol/L; Blood Urea Nitrogen 18 mg/dL (7-17); Calcium 9.6 mg/dL (8.4-10.2); Carbon Dioxide 28 mmol/L (22-30); Chloride 104 mmol/L (98-107); Glucose 108 mg/dL (74-99); Non-African American GFR(CKD) >90 (>60 ml/min/1.73 sqM); Potassium 3.8 mmol/L (3.5-5.1); Sodium 139 mmol/L (137-145); Total Bilirubin 0.3 mg/dL (0.2-1.3); Total Protein 6.6 g/dL (6.3-8.2)
[2024-05-09 20:33] LABS: Partial Thromboplastin Time 25.1 sec (22.0-30.0)
[2024-05-09 20:34] LABS: NT-Pro-B-Type Natriuretic Pept 89 pg/mL
--- NOTE | 2024-05-09 21:07 | XR ---
EXAMINATION TYPE: XR chest 2V DATE OF EXAM: 05/09/2024 8:26 PM COMPARISON: 05/16/2023 CLINICAL INDICATION: Female, 68 years old with history of Chest Pain, TECHNIQUE: XR chest 2V view(s) obtained. FINDINGS: The heart size is normal. The pulmonary vasculature is normal. The lungs are clear. IMPRESSION: 1. No acute pulmonary process. [facility], Workstation: [facility], 05/09/2024 9:05 PM
[2024-05-09] MEDS: ASPIRIN 81 MG PO STA (21:17)
[2024-05-09] MEDS ORDERED: NITROGLYCERIN SL TABS 0.4 MG TAB SUBLINGUAL PRN (22:00)
[2024-05-10 08:38] LABS: Chol/HDL Ratio 3.02 Ratio
[2024-05-10] MEDS: ASPIRIN 325 MG TAB PO SCH (10:25)
[2024-05-10] MEDS: LOSARTAN 25 MG TAB PO SCH (10:25)
[2024-05-10 10:48] LABS: NT-Pro-B-Type Natriuretic Pept 75 pg/mL
--- NOTE | 2024-05-10 12:59 | CA ---
Stress Echo Report Ashley Martinez Age: 68 Gender: F : 1955 Exam Date: 05/10/2024 12:05 Exam Location: [facility] Ht (in): 61 Wt (lb): 150 Ordering Physician: Josephine Javier Referring Physician: [id number] Combine Operator: LULÚ, Technologist Procedure CPT: Indication: Chest Pain, Chest pain, unspecified ICD-9 Codes: R079 Rhythm: Patient History: Chest pressure and hypertension Cardiac Medications: Medications in past 24 hours: Contrast: Stress Results Protocol: Senthil Total dose(mL): Exercise Duration (min:sec): 5:[address] Depression (mm): Angina Score: Sellers Score: METS: 6.6 Resting HR: 78 Resting BP: 126 / 68 Peak HR: 138 Peak BP: 181 / 106 Max Predicted HR: 153 90 % Max Predicted HR Target HR: 130 Double Product: [id number] Stress Summary: BP Response: Reason for Termination: Reached target heart rate or work- load., Maximal effort/unable to continue Cardiac Symptoms: Dyspnea ECG Analysis Resting ECG: Normal sinus rhythm Stress ECG: No significant ST-T wave changes that are concerning for ischemia. Arrhythmia: Occasional PVCs noticed. No sustained arrhythmias Echo Analysis Resting Echo: Normal global and segmental systolic function at rest. No resting regional wall motion normality Peak Echo Analysis: Normal augmentation of global and segmental systolic function with no stress-induced regional wall motion abnormalities MEASUREMENTS (Male/Female) Normal Values CONCLUSIONS Overall low probability for severe obstructive CAD Below average exercise tolerance for age achieving only 6.6 METS Nonischemic ECG and echocardiographic response to treadmill exercise Normal hemodynamic and clinical response to treadmill exercise Dr Nakul Malik (Electronically Signed) Final Date: 10 May 2024 12:59
[2024-05-10 14:16] VITALS: BP 125/73; PULSE 89; RESP 20; TEMP 98.1
--- NOTE | 2024-05-10 14:29 | P.HPIM ---
History of Present Illness H&P Date: 05/10/24 This is a very pleasant 68-year-old female who presented to the emergency department with chest pressure and heaviness that had been ongoing all day while at work and also uncontrolled blood pressure. Patient follows with Dr. Chan in the outpatient setting with a past medical history of hypertension and also previous breast cancer. Patient does not smoke or drink and denies any other illicit drug use. Patient was placed on telemetry monitoring and admitted for cardiology evaluation for chest pain. Labs reviewed and troponins x 3 were negative, EKG shows sinus rhythm with a heart rate of 68 bpm QT 421/438 QTc. Chest x-ray shows no acute pulmonary process. CBC and BMP within normal limits, sodium was 139 with a potassium of 3.8, current creatinine is 0.61. Magnesium 2.0, BNP 89. REVIEW OF SYSTEMS: CONSTITUTIONAL: No fever, no malaise, no fatigue. HEENT: No recent visual problems or hearing problems. Denied any sore throat. CARDIOVASCULAR: Reports of chest pressure chest pain, orthopnea, PND, no palpitations, no syncope. PULMONARY: No shortness of breath, no cough, no hemoptysis. GASTROINTESTINAL: No diarrhea, no nausea, no vomiting, no abdominal pain. NEUROLOGICAL: No headaches, no weakness, no numbness. HEMATOLOGICAL: Denies any bleeding or petechiae. GENITOURINARY: Denies any burning micturition, frequency, or urgency. MUSCULOSKELETAL/RHEUMATOLOGICAL: Denies any joint pain, swelling, or any muscle pain. ENDOCRINE: Denies any polyuria or polydipsia. The rest of the 14-point review of systems is negative. PHYSICAL EXAMINATION: GENERAL: The patient is alert and oriented x3, not in any acute distress. Well developed, well nourished. HEENT: Pupils are round and equally reacting to light. EOMI. No scleral icterus. No conjunctival pallor. Normocephalic, atraumatic. No pharyngeal erythema. No thyromegaly. CARDIOVASCULAR: S1 and S2 present. No murmurs, rubs, or gallops. PULMONARY: Chest is clear to auscultation, no wheezing or crackles. ABDOMEN: Soft, nontender, nondistended, normoactive bowel sounds. No palpable organomegaly. MUSCULOSKELETAL: No joint swelling or deformity. EXTREMITIES: No cyanosis, clubbing, or pedal edema. NEUROLOGICAL: Gross neurological examination did not reveal any focal deficits. SKIN: No rashes. Assessment: Chest pain, ruled out ACS History of hypertension History of breast cancer GI prophylaxis DVT prophylaxis Full code Plan: Patient was admitted for cardiology evaluation continued on telemetry mo nitoring. Patient reports having chest pressure that had been ongoing all day and came to the ER for further evaluation. Patient does follow with Dr. Chan in the outpatient setting along with Dr. Clark cardiology outpatient and reports to having these intermittent episodes over the last few weeks. Patient reports the heaviness and pressure was persistent and came to the ER for further evaluation. Patient has been evaluated by cardiology and will undergo stress test with echo which is currently pending. If normal, consider discharge planning with outpatient follow-up with cardiology. Will await stress test report. The impression and plan of care has been dictated by Viry Falk, Nurse Practitioner as directed. Dr. Maximus MD I have performed a history and examination and MDM of this patient, discussed the same with the dictator, and agree with the dictator's assessment and plan as written ,documented as a scribe. Based on total visit time, I have performed more than 50% of the visit. Past Medical History Past Medical History: Cancer, Hypertension Additional Past Medical History / Comment(s): 2001 left breast CA /w radiation and partial mastectomy History of Any Multi-Drug Resistant Organisms: None Reported Past Surgical History: Section, Cholecystectomy Past Anesthesia/Blood Transfusion Reactions: No Reported Reaction Past Psychological History: No Psychological Hx Reported Smoking Status: Never smoker Past Alcohol Use History: None Reported Past Drug Use History: None Reported - Past Family History Father History Unknown: Yes Family Medical History: Blood Disorder, Hypertension, Myocardial Infarction ([place]) Additional Family Medical History / Comment(s): [place] when father was 70 Mother History Unknown: Yes Family Medical History: Hypertension Medications and Allergies Home Medications Medication Instructions Recorded Confirmed Type Metoprolol Tartrate [Lopressor] 25 mg PO BID #60 tab 06/30/20 05/10/24 Rx Aspirin 81 mg PO DAILY #30 tab 05/10/24 Rx Azithromycin [Zithromax Z Pack] See Taper PO DIRECTED 05/10/24 05/10/24 History Fluconazole [Diflucan] 100 mg PO DAILY 05/10/24 05/10/24 History Losartan [Cozaar] 25 mg PO DAILY 05/10/24 05/10/24 History Nitroglycerin Sl Tabs [Nitrostat] 0.4 mg SUBLINGUAL Q5M PRN #20 tab 05/10/24 Rx Allergies Allergy/AdvReac Type Severity Reaction Status Date / Time Penicillins Allergy Rash/Hives Verified 05/10/24 08:26 Physical Exam Vitals: Vital Signs Temp Pulse Resp BP Pulse Ox 05/10/24 06:48 90 18 125/75 98 05/10/24 01:14 80 18 119/68 05/09/24 21:18 79 18 158/94 05/09/24 19:33 97.6 F 98 20 198/79 96 Intake and Output 05/09/24 05/10/24 05/10/24 22:59 06:59 14:59 Other: Weight 68.039 kg Results CBC & Chem 7: 05/09/24 20:05 05/09/24 20:05 Labs: Abnormal Lab Results - Last 24 Hours (Table) 05/09/24 Range/Units 20:05 BUN 18 H (7-17) mg/dL Glucose 108 H (74-99) mg/dL
--- NOTE | 2024-05-10 15:44 | P.CRDCN ---
History of Present Illness Consult date: 05/10/24 Consult reason: chest pain History of present illness: This is a 68-year-old female patient of Dr. Clark with past medical history of hypertension, palpitations. We have been asked to evaluate the patient for chest pain. Patient states that yesterday she had a very stressful day and was experiencing pressure in her chest. Her blood pressure also was high when she came into the hospital. This continued all afternoon until she arrived to the hospital. She denies any lower extremity edema. No history of stroke or diabetes. Chest pain is resolved at this time. She is agreeable to undergo a stress test today. Blood pressure 125/75, heart rate 90, pulse ox 97% on room air. -EKG: Sinus rhythm with no acute ST changes. -Chest x-ray: No acute process. -Laboratory studies: CBC INR, electrolytes all within normal limits. BUN 18, creatinine 0.61. Troponin negative x 3. Triglycerides 110, cholesterol 166, LDL 89, HDL 55. proBNP 75. -Home cardiac medications: Losartan 25 mg daily, metoprolol tartrate 25 mg twice daily -Stress echocardiogram performed on this admission reveals overall low probability for severe obstructive CAD. Below average exercise tolerance for age only 6.6 METS. Nonischemic EKG and echocardiographic response to treadmill exercise. Normal hemodynamic and clinical response to treadmill exercise. Review Of Systems: At the time of my exam: CONSTITUTIONAL: Denies fever or chills. HEENT: Denies blurred vision, vision changes, or eye pain. Denies hemoptysis CARDIOVASCULAR: Denies chest pain. Denies orthopnea. Denies PND. Denies palpitations RESPIRATORY: Denies shortness of breath. GASTROINTESTINAL: Denies abdominal pain. Denies nausea or vomiting. HEMATOLOGIC: Denies bleeding disorders. GENITOURINARY: Denies any blood in urine. SKIN: Denies puritis. Denies rash. Physical examination: Gen: This is a 68-year-old female in no acute distress VS: reviewed HEENT: Head is atraumatic, normocephalic. Pupils equal, round. Sclerae is anicteric. NECK: Supple. No JVD. LUNGS: Clear to auscultation. No wheezes or rhonchi. No intercostal retractions. HEART: Regular rate and rhythm. No murmur. ABDOMEN: Soft No tenderness. EXTREMITIES: No pedal edema. No calf tenderness. NEUROLOGICAL: Patient is awake, alert and oriented x3. Assessment: Atypical chest pain, acute coronary syndrome ruled out. Chest pain most likely related to emotional stress Hypertension Plan: Resume patient's home cardiac medications A1c and lipid panel ordered Patient is cleared for discharge from cardiology and will follow-up in the office with Dr. Clark in 1 week. Thank you kindly for this consultation. Nurse practitioner note has been reviewed, I agree with documented findings and plan of care. Patient was seen and examined. Past Medical History Past Medical History: Cancer, Hypertension Additional Past Medical History / Comment(s): 2001 left breast CA /w radiation and partial mastectomy History of Any Multi-Drug Resistant Organisms: None Reported Past Surgical History: Section, Cholecystectomy Additional Past Surgical History / Comment(s): x3 Past Anesthesia/Blood Transfusion Reactions: No Reported Reaction Past Psychological History: No Psychological Hx Reported Smoking Status: Never smoker Past Alcohol Use History: None Reported Past Drug Use History: None Reported - Past Family History Father History Unknown: Yes Family Medical History: Blood Disorder, Hypertension, Myocardial Infarction ([place]) Additional Family Medical History / Comment(s): [place] when father was 70 Mother History Unknown: Yes Family Medical History: Hypertension Medications and Allergies Home Medications Medication Instructions Recorded Confirmed Type Metoprolol Tartrate [Lopressor] 25 mg PO BID #60 tab 06/30/20 05/10/24 Rx Aspirin 81 mg PO DAILY #30 tab 05/10/24 Rx Azithromycin [Zithromax Z Pack] See Taper PO DIRECTED 05/10/24 05/10/24 History Fluconazole [Diflucan] 100 mg PO DAILY 05/10/24 05/10/24 History Losartan [Cozaar] 25 mg PO DAILY 05/10/24 05/10/24 History Nitroglycerin Sl Tabs [Nitrostat] 0.4 mg SUBLINGUAL Q5M PRN #20 tab 05/10/24 Rx Allergies Allergy/AdvReac Type Severity Reaction Status Date / Time Penicillins Allergy Rash/Hives Verified 05/10/24 08:26 Physical Exam Vitals: Vital Signs Temp Pulse Pulse Resp BP BP Pulse Ox 05/10/24 14:16 98.1 F 89 20 125/73 97 05/10/24 13:12 98.5 F 91 16 146/79 96 05/10/24 10:23 78 18 146/89 96 05/10/24 06:48 90 18 125/75 98 05/10/24 01:14 80 18 119/68 05/09/24 21:18 79 18 158/94 05/09/24 19:33 97.6 F 98 20 198/79 96 Intake and Output 05/10/24 05/10/24 05/10/24 06:59 14:59 22:59 Other: # Voids 1 Weight 68.039 kg Results 05/09/24 20:05 05/09/24 20:05 Cardiac Enzymes 05/09/24 05/09/24 05/09/24 Range/Units 20:05 20:05 23:56 AST 22 (14-36) U/L Troponin I <0.012 <0.012 (0.000-0.034) ng/mL 05/10/24 Range/Units 02:59 AST (14-36) U/L Troponin I <0.012 (0.000-0.034) ng/mL Coagulation 05/09/24 Range/Units 20:05 PT 11.0 (10.0-12.5) sec APTT 25.1 (22.0-30.0) sec Lipids 05/10/24 Range/Units 02:59 Triglycerides 110.00 (0.00-149.00) mg/dL Cholesterol 166.00 (0.00-200.00) mg/dL HDL Cholesterol 55.00 (40.00-60.00) mg/dL Cholesterol/HDL Ratio 3.02 Ratio CBC 05/09/24 Range/Units 20:05 WBC 7.6 (3.8-10.6) k/uL RBC 4.66 (3.80-5.40) m/uL Hgb 13.7 (11.4-16.0) gm/dL Hct 42.0 (34.0-46.0) % Plt Count 269 (150-450) k/uL Comprehensive Metabolic Panel 05/09/24 Range/Units 20:05 Sodium 139 (137-145) mmol/L Potassium 3.8 (3.5-5.1) mmol/L Chloride 104 (98-107) mmol/L Carbon Dioxide 28 (22-30) mmol/L BUN 18 H (7-17) mg/dL Creatinine 0.61 (0.52-1.04) mg/dL Glucose 108 H (74-99) mg/dL Calcium 9.6 (8.4-10.2) mg/dL AST 22 (14-36) U/L ALT 16 (4-34) U/L Alkaline Phosphatase 67 (38-126) U/L Total Protein 6.6 (6.3-8.2) g/dL Albumin 4.3 (3.5-5.0) g/dL Current Medications Generic Name Dose Route Start Last Admin Trade Name Freq PRN Reason Stop Dose Admin Aspirin 325 mg 05/10/24 09:00 05/10/24 10:25 Aspirin 325 Mg Tab PO 325 mg DAILY KRYSTAL Administration Losartan Potassium 25 mg 05/10/24 10:00 05/10/24 10:25 Losartan 25 Mg Tab PO 25 mg DAILY KRYSTAL Administration Metoprolol Tartrate 25 mg 05/10/24 21:00 Metoprolol Tartrate 25 Mg Tab PO BID KRYSTAL Nitroglycerin 0.4 mg 05/09/24 22:00 Nitroglycerin Sl Tabs 0.4 Mg Tab SUBLINGUAL Q5M PRN Chest Pain Intake and Output 05/10/24 05/10/24 05/10/24 06:59 14:59 22:59 Other: # Voids 1 Weight 68.039 kg Patient Weight 05/11/24 06:59 Weight 68.039 kg 05/09/24 20:05 05/09/24 20:05
[2024-05-10 16:22] LABS: Chol/HDL Ratio 3.08 Ratio; LDL Cholesterol,Calculated 112.5 mg/dL (0.0-131.0); VLDL Calculation 17.14 mg/dL (5.00-40.00)
--- NOTE | 2024-05-10 17:31 | CA ---
Transthoracic Echo Report Name: Ashley Martinez Age: 68 Gender: F : 1955 Exam Date: 05/10/2024 12:24 Exam Location: [facility] Ht (in): 61 Wt (lb): 150 Ordering Physician: Dustin Garza PAC Attending/Referring Phys: JOJO, Greg [employer] Upholsterer Tamara Rebolledo, SIMBA Procedure CPT: Indications: Chest Pain Cardiac Hx: Technical Quality: Good Contrast 1: Total Dose (mL): Contrast 2: Total Dose (mL): MEASUREMENTS (Male / Female) Normal Values 2D ECHO LV Diastolic Diameter PLAX 3.5 cm 4.2 - 5.9 / 3.9 - 5.3 cm LV Systolic Diameter PLAX 2.3 cm IVS Diastolic Thickness 1.1 cm 0.6 - 1.0 / 0.6 - 0.9 cm LVPW Diastolic Thickness 1.2 cm 0.6 - 1.0 / 0.6 - 0.9 cm LV Relative Wall Thickness 0.7 RV Internal Dim ED PLAX 2.5 cm LA Systolic Diameter LX 3.4 cm 3.0 - 4.0 / 2.7 - 3.8 cm LV Diastolic Volume MOD BP 39.3 cm??? 67 - 155 / 56 - 104 cm??? LV Systolic Volume MOD BP 13.4 cm??? 22 - 58 / 19 - 49 cm??? LV Ejection Fraction MOD BP 66.0 % >= 55 % LV Cardiac Index MOD BP 1181.6 cm???/min???m??? LV Diastolic Volume MOD 4C 43.1 cm??? LV Systolic Volume MOD 4C 12.8 cm??? LV Ejection Fraction MOD 4C 70.2 % LV Cardiac Index MOD 4C 1377.5 cm???/min???m??? LV Diastolic Length 4C 6.5 cm LV Systolic Length 4C 5.4 cm LV Diastolic Volume MOD 2C 32.5 cm??? LV Systolic Volume MOD 2C 13.8 cm??? LV Ejection Fraction MOD 2C 57.4 % LV Cardiac Index MOD 2C 849.1 cm???/min???m??? LV Diastolic Length 2C 5.8 cm LV Systolic Length 2C 5.2 cm LA Volume 21.9 cm??? 18 - 58 / 22 - 52 cm??? LA Volume Index 12.6 cm???/m??? 16 - 28 cm???/m??? M-MODE Aortic Root Diameter MM 2.7 cm LA Systolic Diameter MM 3.5 cm LA Ao Ratio MM 1.3 AV Cusp Separation MM 1.7 cm DOPPLER MV Area PHT 2.8 cm??? Mitral E Point Velocity 60.0 cm/s Mitral A Point Velocity 71.7 cm/s Mitral E to A Ratio 0.8 MV Deceleration Time 273.9 ms TR Peak Velocity 222.7 cm/s TR Peak Gradient 19.8 mmHg FINDINGS Left Ventricle Left ventricular ejection fraction is estimated at 55-60%. Mildly increased septal wall thickness. Mildly increased posterior wall thickness. Normal left ventricular systolic function with no obvious regional wall motion abnormalities. Left ventricular cavity size normal. Right Ventricle Normal right ventricular size and function. Right ventricular systolic pressure within normal limits. Right Atrium Normal right atrial size. Left Atrium Normal left atrial size. Mitral Valve Structurally normal mitral valve. Trace mitral regurgitation. No mitral stenosis. Aortic Valve Trileaflet aortic valve. No aortic valve stenosis or regurgitation. Tricuspid Valve Structurally normal tricuspid valve. Trace tricuspid regurgitation. No tricuspid stenosis. Pulmonic Valve Structurally normal pulmonic valve. Trace pulmonic regurgitation. No pulmonic stenosis. Pericardium No pericardial or pleural effusion. Aorta Normal size aortic root and proximal ascending aorta. CONCLUSIONS LVEF 55 to 60% Mild concentric LVH No obvious regional wall motion abnormality Normal RV size and systolic function No significant valvular dysfunction Previewed by: Dr Nakul Malik (Electronically Signed) Final Date: 10 May 2024 17:30
[2024-05-10] MEDS ORDERED: METOPROLOL TARTRATE 25 MG TAB PO SCH (21:00)
--- NOTE | 2024-05-14 22:34 | P.DS ---
Providers Date of admission: 05/09/24 22:19 Expected date of discharge: 05/10/24 Attending physician: Edmar Moon MD Consults: 05/09/24 22:03 Consult Physician Urgent Consulting Provider: Robi Mijares Consult Reason/Comments: chest pain Do you want consulting provider notified?: Yes Primary care physician: Joseph [facility] Course: Final diagnosis Assessment: Chest pain, ruled out ACS, stress testing was normal History of hypertension History of breast cancer GI prophylaxis DVT prophylaxis Full code Discharge disposition Patient is being discharged in a stable condition with guarded prognosis to home. Patient will follow-up with Dr. Chan in the outpatient setting upon discharge. Patient is to continue with current medication and outpatient follow-up with primary mortgage or loan underwriter Dr. Clark as scheduled. Total time taken is greater than 35 minutes. Hospital course This is a very pleasant 68-year-old female who presented to the emergency department with chest pressure and heaviness that had been ongoing all day while at work and also uncontrolled blood pressure. Patient follows with Dr. Chan in the outpatient setting with a past medical history of hypertension and also previous breast cancer. Patient does not smoke or drink and denies any other illicit drug use. Patient was placed on telemetry monitoring and admitted for cardiology evaluation for chest pain. Labs reviewed and troponins x 3 were negative, EKG shows sinus rhythm with a heart rate of 68 bpm QT 421/438 QTc. Chest x-ray shows no acute pulmonary process. CBC and BMP within normal limits, sodium was 139 with a potassium of 3.8, current creatinine is 0.61. Magnesium 2.0, BNP 89. Patient is undergoing stress test which was negative and patient will follow-up with cardiology outpatient. Patient follows with Dr. Clark outpatient. Patient's blood pressure better controlled and reports to feeling much improved. Currently no reports of chest pain, shortness of breath, or palpitations. Patient is afebrile. No reports of nausea or vomiting and patient is tolerating diet. Patient will be discharged home today. Please refer to other consultation note for further HPI. PHYSICAL EXAMINATION: GENERAL: The patient is alert and oriented x3, not in any acute distress. Well developed, well nourished. HEENT: Pupils are round and equally reacting to light. EOMI. No scleral icterus. No conjunctival pallor. Normocephalic, atraumatic. No pharyngeal erythema. No thyromegaly. CARDIOVASCULAR: S1 and S2 present. No murmurs, rubs, or gallops. PULMONARY: Chest is clear to auscultation, no wheezing or crackles. ABDOMEN: Soft, nontender, nondistended, normoactive bowel sounds. No palpable organomegaly. MUSCULOSKELETAL: No joint swelling or deformity. EXTREMITIES: No cyanosis, clubbing, or pedal edema. NEUROLOGICAL: Gross neurological examination did not reveal any focal deficits. SKIN: No rashes. Please refer to medication reconciliation sheet for a list of medications. The impression and plan of care has been dictated by Viry Falk, Nurse Practitioner as directed. Dr. Maximus MD I have performed a history and examination and MDM of this patient, discussed the same with the dictator, and agree with the dictator's assessment and plan as written ,documented as a scribe. Based on total visit time, I have performed more than 50% of the visit. Patient Condition at Discharge: Fair Plan - Discharge Summary New Discharge Prescriptions: New Aspirin 81 mg PO DAILY #30 tab Nitroglycerin Sl Tabs [Nitrostat] 0.4 mg SUBLINGUAL Q5M PRN #20 tab PRN Reason: Chest Pain Continue Metoprolol Tartrate [Lopressor] 25 mg PO BID #60 tab Losartan [Cozaar] 25 mg PO DAILY Fluconazole [Diflucan] 100 mg PO DAILY Azithromycin [Zithromax Z Pack] See Taper PO DIRECTED Discharge Medication List Metoprolol Tartrate [Lopressor] 25 mg PO BID #60 tab 06/30/20 [Rx] Aspirin 81 mg PO DAILY #30 tab 05/10/24 [Rx] Azithromycin [Zithromax Z Pack] See Taper PO DIRECTED 05/10/24 [History] Fluconazole [Diflucan] 100 mg PO DAILY 05/10/24 [History] Losartan [Cozaar] 25 mg PO DAILY 05/10/24 [History] Nitroglycerin Sl Tabs [Nitrostat] 0.4 mg SUBLINGUAL Q5M PRN #20 tab 05/10/24 [Rx] Follow up Appointment(s)/Referral(s): Joseph Chan DO [Primary Care Provider] - 1-2 days Radha Clark MD [STAFF PHYSICIAN] - 1 Week Patient Instructions/Handouts: Chest Pain (DC) Activity/Diet/Wound Care/Special Instructions: Discharge pending clearance from cardiology Activity limited until follow-up Follow-up with primary care provider on discharge Follow-up with cardiology outpatient Continue current medications Discharge Disposition: HOME SELF-CARE
== END 2024-05-10 16:45 | disposition home or self-care (01) ==
LOC: EC 19:32 → 6NMEDSUR 22:19
PROVIDERS: ADMIT Internal Medicine; ATTEND Internal Medicine
DX: R07.89 Other chest pain (principal); I10 Essential (primary) hypertension; K04.7 Periapical abscess without sinus; F43.9 Reaction to severe stress, unspecified; Z79.899 Other long term (current) drug therapy; Z88.0 Allergy status to penicillin; Z85.3 Personal history of malignant neoplasm of breast
CPT/HCPCS: 99285; 36415; 93005 ×2; 93306; 93351; 83880 ×2; 80061; 80053; 83735; 84484 ×2; 85025; 85610; 85730; 83036; 71046; G0378 ×2

== ENCOUNTER 2024-11-30 07:36 | Emergency (ER) | payer OTHER ==
[2024-11-30 07:41] VITALS: RESP 18
--- NOTE | 2024-11-30 08:02 | ED ---
General Adult HPI - General Chief complaint: Abdominal Pain Stated complaint: No recent bowel movement Time Seen by Provider: 11/30/24 07:43 Source: patient, RN notes reviewed Mode of arrival: ambulatory Limitations: no limitations - History of Present Illness Initial comments: Patient is a 69-year-old female present to the emergency department with [place] gi[place] for constipation. Last bowel movement was around 1 week ago. Patient is having some increased discomfort over the past couple of days, cramping. Patient was recently on [facility]wood for a cyst removal near the jaw. No nausea or vomiting. No fever. - Related Data Home Medications Medication Instructions Recorded Confirmed Azithromycin [Zithromax Z Pack] See Taper PO DIRECTED 05/10/24 05/10/24 Fluconazole [Diflucan] 100 mg PO DAILY 05/10/24 05/10/24 Losartan [Cozaar] 25 mg PO DAILY 05/10/24 05/10/24 Previous Rx's Medication Instructions Recorded Metoprolol Tartrate [Lopressor] 25 mg PO BID #60 tab 06/30/20 Aspirin 81 mg PO DAILY #30 tab 05/10/24 Nitroglycerin Sl Tabs [Nitrostat] 0.4 mg SUBLINGUAL Q5M PRN #20 tab 05/10/24 Allergies Allergy/AdvReac Type Severity Reaction Status Date / Time Penicillins Allergy Rash/Hives Verified 11/30/24 07:41 Review of Systems ROS Statement: Those systems with pertinent positive or pertinent negative responses have been documented in the HPI. ROS Other: All systems not noted in ROS Statement are negative. Constitutional: Denies: fever Eyes: Denies: eye pain ENT: Denies: ear pain Cardiovascular: Denies: chest pain Gastrointestinal: Reports: as per HPI, constipation Musculoskeletal: Denies: back pain Past Medical History Past Medical History: Cancer, Hypertension Additional Past Medical History / Comment(s): 2002 left breast CA /w radiation a nd partial mastectomy History of Any Multi-Drug Resistant Organisms: None Reported Past Surgical History: Section, Cholecystectomy Additional Past Surgical History / Comment(s): x3, cyst removal to left jaw Past Anesthesia/Blood Transfusion Reactions: No Reported Reaction Past Psychological History: No Psychological Hx Reported Smoking Status: Never smoker Past Alcohol Use History: None Reported Past Drug Use History: None Reported - Past Family History Father History Unknown: Yes Family Medical History: Blood Disorder, Hypertension, Myocardial Infarction ([place]) Additional Family Medical History / Comment(s): NE when father was 70 Mother History Unknown: Yes Family Medical History: Hypertension General Exam Limitations: no limitations General appearance: alert, in no apparent distress Head exam: Present: normocephalic Eye exam: Present: normal appearance Respiratory exam: Present: normal lung sounds bilaterally Cardiovascular Exam: Present: regular rate, normal rhythm GI/Abdominal exam: Present: soft, normal bowel sounds. Absent: distended, tenderness, guarding, rebound, rigid, pulsatile mass Extremities exam: Present: normal inspection Neurological exam: Present: alert Psychiatric exam: Present: normal affect, normal mood Skin exam: Present: normal color Course Vital Signs 11/30/24 07:37 Temperature 97.4 F L Pulse Rate 85 Respiratory 18 Rate Blood Pressure 161/85 O2 Sat by Pulse 96 Oximetry Medical Decision Making - Medical Decision Making Was pt. sent in by a medical professional or institution (, PA, FACS TEACHER, urgent care, hospital, or intermediate...) When possible be specific @ -No Did you speak to anyone other than the patient for history (EMS, parent, family, police, friend...)? What history was obtained from this source @ -No Did you review nursing and triage notes (agree or disagree)? Why? @ -I reviewed and agree with nursing and triage notes Were old charts reviewed (outside hosp., previous admission, EMS record, old EKG, old radiological studies, urgent care reports/EKG's, intermediate records)? Report findings @ -No old charts were reviewed Differential Diagnosis (chest pain, altered mental status, abdominal pain women, abdominal pain men, vaginal bleeding, weakness, fever, dyspnea, syncope, headache, dizziness, GI bleed, back pain, seizure, CVA, palpatations, mental health, musculoskeletal)? @ -Differential Abdominal Pain Women: Appendicitis, Cholecystitis, diverticulosis, ischemic bowel, pancreatitis, hepatitis, UTI, gastroenteritis, AAA, incarcerated hernia, bowel obstruction, constipation, inflammatory bowel, hepatitis, peptic ulcer disease, splenic infarction, perforated viscus, vulvitis, ovarian torsion, PID, kidney stone, placenta abruption, this is not meant to be an all-inclusive list EKG interpreted by me (3pts min.). @ -As above X-rays interpreted by me (1pt min.). @ -X-ray without acute abnormality. Increased well. CT interpreted by me (1pt min.). @ -None done U/S interpreted by me (1pt. min.). @ -None done What testing was considered but not performed or refused? (CT, X-rays, U/S, labs)? Why? @ -None What meds were considered but not given or refused? Why? @ -None Did you discuss the management of the patient with other professionals (professionals i.e. DrRachna, PA, FACS TEACHER, lab, RT, psych nurse, social sciences lecturer, corporate recycling manager, teacher, general service officer, transplant case manager)? Give summary @ -No Was smoking cessation discussed for >3mins.? @ -No Was critical care preformed (if so, how long)? @ -No Were there social determinants of health that impacted care today? How? (Homelessness, low income, unemployed, alcoholism, drug addiction, transportation, low edu. Level, literacy, decrease access to med. care, halfway, rehab)? @ -No Was there de-escalation of care discussed even if they declined (Discuss DNR or withdrawal of care, Hospice)? DNR status @ -No What co-morbidities impacted this encounter? (DM, HTN, Smoking, COPD, CAD, Cancer, CVA, ARF, Chemo, Hep., AIDS, mental health diagnosis, sleep apnea, morbid obesity)? @ -Recent [facility]wood use Was patient admitted / discharged? Hospital course, mention meds given and route, prescriptions, significant lab abnormalities, going to OR and other pertinent info. @ -Patient presents with constipation. Patient received enema with resolution of symptoms. Abdomen soft and nontender on reevaluation. Patient updated Undiagnosed new problem with uncertain prognosis? @ -No Drug Therapy requiring intensive monitoring for toxicity (Heparin, Nitro, Insulin, Cardizem)? @ -No Were any procedures done? @ -No Diagnosis/symptom? @ -Constipation Acute, or Chronic, or Acute on Chronic? @ -Acute Uncomplicated (without systemic symptoms) or Complicated (systemic symptoms)? @ -Default Side effects of treatment? @ -No Exacerbation, Progression, or Severe Exacerbation? @ -No Poses a threat to life or bodily function? How? (Chest pain, [place], [place], pneumonia, PE, COPD, DKA, ARF, appy, cholecystitis, CVA, Diverticulitis, Homicidal, Suicidal, threat to staff... and all critical care pts) @ -No Disposition Clinical Impression: Constipation Disposition: HOME SELF-CARE Condition: Stable Instructions (If sedation given, give patient instructions): Constipation (ED), High Fiber Diet (ED) Additional Instructions: Please do follow-up with your primary care physician in the next couple of days for recheck. Return for increased pain, vomiting, worsening or changing symptoms or other concerns. Is patient prescribed a controlled substance at d/c from ED?: No Referrals: Joseph Chan DO [Primary Care Provider] - 1-2 days Time of Disposition: 11:13
--- NOTE | 2024-11-30 09:15 | XR ---
EXAMINATION TYPE: XR abdomen 1V DATE OF EXAM: 11/30/2024 8:51 AM COMPARISON: None. CLINICAL INDICATION: Female, 69 years old with history of constipation, TECHNIQUE: Single view of the abdomen. FINDINGS: Small bowel demonstrates no evidence for dilatation or air fluid levels. Gas and fecal material is seen in non-distended colon. Mild fecal stasis noted left hemicolon. No convincing evidence for pneumoperitoneum. No unusual calcifications. The lung bases are clear. The osseous structures are intact. IMPRESSION: 1. Overall nonobstructive bowel gas pattern. [facility], , 11/30/2024 9:13 AM
[2024-11-30] MEDS: LACTULOSE 20 GM/30 ML CUP PO ONE (10:09)
[2024-11-30] MEDS: NA PHOS,M-B/NA PHOS,DI-BA 133 ML ENEMA RECTAL ONE (10:32)
[2024-11-30 11:30] VITALS: BP 141/79; PULSE 82; TEMP 97.8
== END 2024-11-30 11:33 | disposition home or self-care (01) ==
LOC: EC 07:36
DX: K59.00 Constipation, unspecified (principal); F11.90 Opioid use, unspecified, uncomplicated; Z88.0 Allergy status to penicillin
CPT/HCPCS: 74018; 99284